=== PATIENT | male | born 1950 | race African-American/Black ===

== ENCOUNTER 2019-07-29 11:25 | Inpatient (IN) | payer MEDICARE ==
[~2019-07-29] VITALS: Ht 172.7 cm; Wt 67.5 kg
--- NOTE | 2019-07-29 11:46 | NUR ---
nURSING NOTED: ELDON ambulam[facility] from [facility] for ALtered mental status, patient is lethargic, nonverbal, has to be shaken to open and blink eyes, otherwise he is with eyes closed, patient is on Venti mask at 55% saturating at 93% with RR of 16 and heart rate at 76 in sinus rhythm. Bp is 140/92. assessed be er physcician.
[2019-07-29 11:51] VITALS: BP 140/92
--- NOTE | 2019-07-29 11:53 | Emergency Room Report ---
History of Present Illness General Chief Complaint: Altered Mental Status Source: Medical Record Present Illness HPI Disclaimer: Please note that this report is being documented using [employer] technology. This can lead to erroneous entry secondary to incorrect interpretation by the dictating instrument. HPI: 68-year-old male with a history of CVA resultant aphasia left-sided weakness, chronic kidney disease, hypertension, hyperlipidemia, diabetes, nonverbal at baseline, presents for evaluation of altered mental status. According to skilled nursing documents and EMS the patient was less arousable and less active than his baseline. His baseline is reportedly a and O x1 but is able to follow some commands which he was apparently not doing. Today found him hypoxic at 86% on room air which improved after starting on nonrebreather. His fingerstick was in the low 70s and he was given glucagon without significant improvement. EMS stated that there was pupillary asymmetry and some spasticity in the left upper extremity however it is unclear whether or not this is chronic or an acute change. The patient cannot provide any history. He is on Xarelto. PMH: Hypertension, hyperlipidemia, stroke, diabetes PSH: See medical record Allergies: None reported Social Hx: See chart Allergies: Coded Allergies: No Known Allergies (Unverified , 07/29/19) Nursing Documentation-PMH Past Medical History: No History, Except For Hx Hypertension: Yes - hypoglycemia Hx Gastrointestinal Problems: Yes - GERD, dysphagia History Of Psychiatric Problem: Yes - anxiety Hx Neurological Problems: Yes Hx Seizures: Yes Review of Systems All Other Systems: negative except mentioned in HPI Physical Exam Vital Signs Date Time Temp Pulse Resp B/P (MAP) Pulse Ox O2 Delivery O2 Flow Rate FiO2 07/29/19 11:34 97.2 84 16 144/97 (113) 90 Nasal Cannula 6.0 General: Somnolent, no spontaneous eye movement. Can follow some commands HEENT: NC/AT. EOMI. pupils are approximately 3 mm and faintly reactive bilaterally. Neck: Supple, trachea midline Cardiovascular: RRR. S1 and S2 normal. No murmur appreciated Resp: Diminished breath sounds at the right lung base with some crackles. No wheezing. Abdomen: Abdomen is soft, nondistended. Nontender Skin: Intact. No abrasions, laceration or rash over the exposed skin MSK: Mild increased in tone in the left upper extremity on passive flexion extension at the left elbow. Neuro: Somnolent, GCS 8. Procedures Critical Care Time Critical Care Time Total critical care time: Approximately 45 minutes Due to a high probability of clinically significant, life threatening deterioration, the patient required the highest level of preparedness to intervene emergently and I personally spent this critical care time directly and personally managing the patient. This critical care time included obtaining a history, examining the patient, pulse oximetry, ordering and reviewing studies , ordering treatments, evaluating response to treatment and updating management plan as needed, frequent reassessment and discussion with other providers as well as arranging for ultimate disposition. This critical to care time was performed to assess and manage the high probability of life-threatening deterioration that could result in multiorgan failure. This critical care time is separate from the separately billable procedures and treating other patients. Medical Decision Making Diagnostic Impression: Primary Impression: Altered mental status Additional Impressions: Pneumonia Acidosis Sepsis Elevated troponin ER Course 68-year-old male presents for evaluation of change in mentation. Patient would require a broad work-up given the reported hypoxia, hypoglycemia and history of CVA and use of anticoagulants. Will send for CT scan of the head without contrast as well as broad metabolic and infectious labs. IV fluids started. Chest x-ray ordered for crackles at the right lung base concerning for pneumonia. Patient will require admission Laboratory Tests Test 07/29/19 12:28 07/29/19 13:00 07/29/19 13:10 Arterial Blood pH 7.407 (7.350-7.450) Arterial Blood Partial Pressure CO2 38.1 mmHg (35.0-45.0) Arterial Blood Partial Pressure O2 72.9 mmHg (75.0-100.0) L Arterial Blood HCO3 23.4 mmol/L (22.0-26.0) Arterial Blood Oxygen Saturation 94.5 % (95-100) L Arterial Blood Base Excess -0.9 (-2-2) Yo Test Positive White Blood Count 14.5 K/UL (4.8-10.8) H Red Blood Count 5.67 M/UL (4.70-6.10) Hemoglobin 16.6 G/DL (14.2-18.0) Hematocrit 50.3 % (42.0-52.0) Mean Corpuscular Volume 89 FL (80-99) Mean Corpuscular Hemoglobin 29.3 PG (27.0-31.0) Mean Corpuscular Hemoglobin Concent 33.0 G/DL (32.0-36.0) Red Cell Distribution Width 12.2 % (11.6-14.8) Platelet Count 236 K/UL (150-450) Mean Platelet Volume 5.2 FL (6.5-10.1) L Neutrophils (%) (Auto) 75.1 % (45.0-75.0) H Lymphocytes (%) (Auto) 16.3 % (20.0-45.0) L Monocytes (%) (Auto) 7.5 % (1.0-10.0) Eosinophils (%) (Auto) 0.6 % (0.0-3.0) Basophils (%) (Auto) 0.5 % (0.0-2.0) Prothrombin Time 13.4 SEC (9.30-11.50) H Prothrombin Time INR 1.3 (0.9-1.1) H PTT 34 SEC (23-33) H Sodium Level 143 MMOL/L (136-145) Potassium Level 4.1 MMOL/L (3.5-5.1) Chloride Level 108 MMOL/L (98-107) H Carbon Dioxide Level 26 MMOL/L (21-32) Anion Gap 9 mmol/L (5-15) Blood Urea Nitrogen 18 mg/dL (7-18) Creatinine 1.3 MG/DL (0.55-1.30) Estimate Glomerular Filtration Rate > 60 mL/min (>60) Glucose Level 86 MG/DL (74-106) Lactic Acid Level 3.00 mmol/L (0.4-2.0) H Calcium Level 9.3 MG/DL (8.5-10.1) Phosphorus Level 3.8 MG/DL (2.5-4.9) Magnesium Level 1.9 MG/DL (1.8-2.4) Total Bilirubin 0.3 MG/DL (0.2-1.0) Aspartate Amino Transferase (AST) 17 U/L (15-37) Alanine Aminotransferase (ALT) 16 U/L (12-78) Alkaline Phosphatase 106 U/L (46-116) Total Creatine Kinase 234 U/L (26-308) Creatine Kinase MB 2.8 NG/ML (0.0-3.6) Creatine Kinase MB Relative Index 1.1 Troponin I 0.084 ng/mL (0.000-0.056) Pro-B-Type Natriuretic Peptide 971 pg/mL (0-125) H Total Protein 7.5 G/DL (6.4-8.2) Albumin 3.1 G/DL (3.4-5.0) L Globulin 4.4 g/dL Albumin/Globulin Ratio 0.7 (1.0-2.7) L Urine Color Pale yellow Urine Appearance Clear Urine pH 5 (4.5-8.0) Urine Specific [place] 1.015 (1.005-1.035) Urine Protein 3+ (NEGATIVE) H Urine Glucose (UA) Negative (NEGATIVE) Urine Ketones Negative (NEGATIVE) Urine Blood Negative (NEGATIVE) Urine Nitrite Negative (NEGATIVE) Urine Bilirubin Negative (NEGATIVE) Urine Urobilinogen Normal MG/DL (0.0-1.0) Urine Leukocyte Esterase Negative (NEGATIVE) Urine RBC 0 /HPF (0 - 0) Urine WBC 0 /HPF (0 - 0) Urine Squamous Epithelial Cells None /LPF (NONE/OCC) Urine Bacteria None /HPF (NONE) EKG Diagnostic Results EKG Time: 11:54 Rate: normal Rhythm: NSR ST Segments: no acute changes Other Impression Sinus rhythm, left axis deviation, normal cardiac intervals, no ST segment changes. Rhythm Strip Diag. Results Rhythm Strip Time: 11:54 EP Interpretation: yes Rate: 70s Rhythm: NSR, no PVC's, no ectopy Chest X-Ray Diagnostic Results Chest X-Ray Diagnostic Results : # of Views/Limited/Complete: 1 View Indication: Shortness of Breath Interpretation: no effusion, other - The left costophrenic angle is obscured with possible effusion or infiltrate suggestive of pneumonia Impression: Other - Possible pneumonia and effusion and left lower lobe Electronically Signed by: Electronically signed by Dr. Marco Mera Reevaluation Time: 14:26 Last Vital Signs Date Time Temp Pulse Resp B/P (MAP) Pulse Ox O2 Delivery O2 Flow Rate FiO2 07/29/19 11:34 97.2 84 16 144/97 (113) 90 Nasal Cannula 6.0 Reevaluation Impression Labs show a white count of 14.5 and possible infiltrate in the left lower lobe suggestive of pneumonia. Troponin came back slightly elevated but there are no ischemic changes on his EKG. We will start sepsis level fluids for an elevated lactate. Blood cultures are sent. Patient will be admitted to telemetry for further management. His PMD will be the admitting doctor in the hospital and he was updated by telephone. Disposition: ADMITTED INPATIENT Condition: Serious Marco Mera MD Jul 29, 2019 11:53
--- NOTE | 2019-07-29 12:58 | Diagnostic Imaging Report ---
EXAM: CT Head Without Intravenous Contrast CLINICAL HISTORY: AMS TECHNIQUE: Axial computed tomography images of the head brain without intravenous contrast. CTDI is 60.0 mGy and DLP is 1334.1 mGy-cm. One or more of the following dose reduction techniques were used: automated exposure control, adjustment of the mA and or kV according to patient size, use of iterative reconstruction technique. COMPARISON: None FINDINGS: Brain: No acute infarct or hemorrhage identified. No extra-axial fluid collection. No mass effect or midline shift. Scattered areas of hypoattenuation in the supratentorial white matter likely represent chronic small vessel ischemic changes. Remote infarct in the right basal ganglia. Encephalomalacia in the right temporal lobe, parietal lobe, and frontal lobe. Remote infarcts in the cerebellar hemispheres. Ventricles and sulci: Prominence of the ventricles and sulci is likely secondary to cerebral volume loss. Skull: Normal. No bony lesion or fracture. Subcutaneous tissues: Probably 8 mm sebaceous cyst in the right frontal region. Sinuses: Small polyp versus mucous retention cyst in a posterior left ethmoid air cell. Orbits: Bilateral lens implants. Other: Atherosclerotic calcifications in the intracranial vasculature. IMPRESSION: 1. No acute intracranial abnormality. 2. Chronic small vessel ischemic changes and cerebral volume loss. Scattered remote infarcts as described above.
[2019-07-29 13:50] LABS: ANION GAP 9 mmol/L (5-15); BLOOD UREA NITROGEN 18 mg/dL (7-18); CALCIUM 9.3 MG/DL (8.5-10.1); CARBON DIOXIDE 26 MMOL/L (21-32); CHLORIDE 108 MMOL/L (98-107); CREATININE 1.3 MG/DL (0.55-1.30); POTASSIUM 4.1 MMOL/L (3.5-5.1); SODIUM 143 MMOL/L (136-145)
[2019-07-29 13:56] LABS: APPEARANCE,URINE CLEAR; BILIRUBIN, URINE NEGATIVE (NEGATIVE); COLOR,URINE PALE YELLOW; GLUCOSE, URINE (UA) NEGATIVE (NEGATIVE); KETONES,URINE NEGATIVE (NEGATIVE); LEUKOCYTE ESTERASE ,URINE NEGATIVE (NEGATIVE); NITRITE,URINE NEGATIVE (NEGATIVE); PH,URINE 5 (4.5-8.0); PROTEIN,URINE 3+ (NEGATIVE); UROBILINOGEN,URINE NORMAL MG/DL (0.0-1.0)
[2019-07-29 14:01] LABS: BASOPHILS % (AUTO) 0.5 % (0.0-2.0); EOSINOPHILS % (AUTO) 0.6 % (0.0-3.0); HEMATOCRIT 50.3 % (42.0-52.0); HEMOGLOBIN 16.6 G/DL (14.2-18.0); LYMPHOCYTES % (AUTO) 16.3 % (20.0-45.0); MEAN CORPUSCULAR VOLUME 89 FL (80-99); MONOCYTES % (AUTO) 7.5 % (1.0-10.0); NEUTROPHILS % (AUTO) 75.1 % (45.0-75.0); PLATELET COUNT 236 K/UL (150-450); RED BLOOD COUNT 5.67 M/UL (4.70-6.10); RED CELL DISTRIBUTION WIDTH 12.2 % (11.6-14.8); WHITE BLOOD COUNT 14.5 K/UL (4.8-10.8)
[2019-07-29 14:03] LABS: ALANINE AMINOTRANSFERASE 16 U/L (12-78); ALBUMIN 3.1 G/DL (3.4-5.0); ALBUMIN/GLOBULIN RATIO 0.7 (1.0-2.7); ALKALINE PHOSPHATASE 106 U/L (46-116); ASPARTATE AMINO TRANSFERASE 17 U/L (15-37); BILIRUBIN,TOTAL 0.3 MG/DL (0.2-1.0); CKMB 2.8 NG/ML (0.0-3.6); CREATINE KINASE 234 U/L (26-308); PHOSPHORUS 3.8 MG/DL (2.5-4.9)
[2019-07-29 14:07] LABS: INR 1.3 (0.9-1.1)
[2019-07-29] MEDS ORDERED: cefTRIAXone 1 GM in NS 55 ML IV SCH (14:30)
[2019-07-29] MEDS ORDERED: Naloxone 0.4mg/ml Inj IVP ONE (14:30)
[2019-07-29] MEDS ORDERED: Azithromycin 500 MG in NS 275 ML IV SCH (14:30)
[2019-07-29] MEDS ORDERED: DOCUSATE SODIU100 MG ORAL (17:12)
[2019-07-29] MEDS ORDERED: ATORVASTATIN CA20 MG ORAL (17:12)
[2019-07-29] MEDS ORDERED: DUONEB 0.5-3(2.53 ML HHN (17:12)
[2019-07-29] MEDS ORDERED: INSULIN LI100 UNIT/1 SQ (17:12)
[2019-07-29] MEDS ORDERED: LANTUS SOL100 UNIT/1 SUBQ (17:12)
[2019-07-29] MEDS ORDERED: LISINOPRIL40 MG ORAL (17:12)
[2019-07-29] MEDS ORDERED: FAMOTIDINE20 MG ORAL (17:12)
[2019-07-29] MEDS ORDERED: GLIPIZIDE10 MG PO (17:12)
[2019-07-29] MEDS ORDERED: KLONOPIN1 MG ORAL (17:12)
[2019-07-29] MEDS ORDERED: GLUCAGON EMERGEN1 MG IJ (17:12)
[2019-07-29] MEDS ORDERED: GABAPENTIN400 MG ORAL (17:12)
[2019-07-29] MEDS ORDERED: GLIPIZIDE5 MG ORAL (17:12)
[2019-07-29] MEDS ORDERED: DULCOLAX10 MG RC (17:12)
[2019-07-29] MEDS ORDERED: HYDRALAZINE HCL25 M1 ORAL (17:12)
[2019-07-29] MEDS ORDERED: ASPIR 8181 MG ORAL (17:12)
[2019-07-29] MEDS ORDERED: MULTIVITAMINS1 EAC2 ORAL (17:15)
[2019-07-29] MEDS ORDERED: QUETIAPINE FUMA50 MG ORAL ×2 (17:15→17:17)
[2019-07-29] MEDS ORDERED: ZOFRAN ODT8 MG ORAL (17:15)
[2019-07-29] MEDS ORDERED: MILK OF MA400 MG/51 ORAL (17:15)
[2019-07-29] MEDS ORDERED: METFORMIN HCL1000 M1 ORAL (17:15)
[2019-07-29] MEDS ORDERED: XARELTO10 MG ORAL (17:17)
[2019-07-29] MEDS ORDERED: ACETAMINOPHEN325 M1 ORAL (17:17)
[2019-07-29] MEDS ORDERED: VALPROIC A250 MG/5 M PO (17:17)
[2019-07-29] MEDS ORDERED: TRAMADOL HCL50 MG ORAL (17:17)
[2019-07-29 18:10] VITALS: BP 157/90
--- NOTE | 2019-07-29 18:12 | NUR ---
TRANSFER TO FLOOR: REPORT GIVEN TO ROBIN [facility]. PATIENT PLACED ON ROOM 209-1 AND REMAINS ON VENTURI MASK AT 55%. PATIENT IS ABLE TO M,OVE UPPER EXTREMETIES AT 3/5 AND LEGS AT 1/5. PATIENT ABLE TO OPEN EYES BUT REMAINS LETHARGIC. NO BELONGINGS WITH PATIENT UPON TRANSFER.
--- NOTE | 2019-07-29 18:45 | NUR ---
NURSE NOTES: Paged Dr. Fernando who is covering Dr. Sandra Lopez who is covering Dr. Mansfield per Dr. Mansfield voicemail. About troponin 0.254. Awaiting call back.
--- NOTE | 2019-07-29 19:00 | History and Physical Report ---
DATE OF ADMISSION: 07/29/2019 The patient is seen in the emergency room. CHIEF COMPLAINT: The patient sent from shelter for altered mental status. HISTORY OF PRESENT ILLNESS: This is a patient 68 year old man from [facility] with history of hypertension, diabetes, seizure disorder, who was noted by the nursing staff to have altered mental status, arousable and will go back to sleep. The patient was hypoglycemic, glucagon was given, was brought in by paramedics. The patient was found to have some infiltrate on chest x-ray and elevated white count, hypoxic on room air. Narcan was given with minimal effect. The patient had a previous admission back in June 2019 at [facility] for possibly overdose with benzodiazepine, opioid unintentionally. There was no documented seizure at that time. PAST MEDICAL HISTORY: As above. PAST SURGICAL HISTORY: Reviewed. MEDICATIONS AT HOME: Please refer to the medication reconciliation. I have reviewed at length. REVIEW OF SYSTEMS: Unable to obtain because of patient's mental status. PHYSICAL EXAMINATION: VITAL SIGNS: Stable, afebrile. GENERAL: The patient is lying in bed, arousable with painful stimuli and verbal commands briefly. HEENT: Eyes anicteric. NECK: Supple. CARDIAC: S1, S2 normal. LUNGS: Bilateral rhonchi. ABDOMEN: Soft, nontender, nondistended. No guarding. No rebound. EXTREMITIES: No significant edema or cyanosis. NEUROLOGIC: The patient has altered mental status and lethargic. LABORATORY AND DIAGNOSTIC DATA: Laboratories reviewed, noted with elevated white count otherwise electrolytes are okay. X-ray infiltrate at the bases, possible pneumonia. UA, no evidence of urinary tract infection. IMPRESSION: 1. Acute encephalopathy, rule out seizure, rule out hypoglycemia, and rule out other infectious process, possibly pneumonia facility acquired. 2. History of seizure disorder. 3. Diabetes type type 2. 4. Hypertension. 5. Muscle weakness. 6. Gait impairment. 7. Hypoxemia. PLAN: 1. Admit to telemetry. 2. Oxygen to keep saturation above 92%. 3. Pulmonary and Infectious Diseases consult. 4. IV antibiotics with Zosyn and vancomycin. 5. Follow up cultures. 6. History of sliding scale. 7. NPO until patient become more alert. 8. Aspiration, seizure, and fall precaution. 9. Check electrolytes and replete as indicated. 10. Recheck CBC, BMP, magnesium, phosphorus, TSH, hemoglobin A1c. 11. Check procalcitonin. 12. Check ammonia level. 13. Pulmonary nebulizer every 4 hours as needed. 14. Further recommendation to follow pending the patient's response to above measures. 15. Dr. Gavin Lopez will be covering me going forward. I will be back to see the patient on Tuesday, August 01, 2019. CODE STATUS: Full code. TIME SPENT: Time spent in evaluation and coordination of care 75 minute. Salvador D Bailee Mansfield DR: Choco JOB#: [id number] CC: DANIELE
--- NOTE | 2019-07-29 19:02 | NUR ---
NURSE NOTES: Received report from Abebe in ED. patient arrived lethargic and nonverbal on 55% Venti mask. VSS. NSR on telemetry with bolus and azithromycin running to peripheral IVs. Bed in lowest , locked position.
--- NOTE | 2019-07-29 19:08 | NUR ---
NURSE NOTES: Spoke with Dr Mansfield who gave telephone orders. Addendum: 07/29/19 at 2001 by Baldomero Eckert RN per padilla Mg glipizide, lantus, metformin, gabapentin due to AMS. Addendum: 07/29/19 at 2028 by Baldomero Eckert RN When receiving the orders by telephone, this RN asked Dr Mansfield if he was continuing the oral 20mg xarelto or any non-oral anticoag should be ordered given the patient's lethargy and NPO ordered diet. DR Mansfield instructed to continue with Xarelto without change.
[2019-07-29] MEDS ORDERED: traMADol 50mg tab ORAL PRN (19:45)
[2019-07-29] MEDS ORDERED: Albuterol/Ipratropium 3ml neb HHN PRN (19:45)
--- NOTE | 2019-07-29 19:50 | NUR ---
NURSE NOTES: Received pt from ROBIN Causey. Pt awake but nonverbal. Bed in lowest position. Call light within reach. Will continue to monitor.
[2019-07-29 20:00] VITALS: BP 159/81
--- NOTE | 2019-07-29 20:02 | NUR ---
NURSE NOTES: Critical Troponin 0.245 (up from .084). Called Dr Mansfield's phone at 645pm--message stated to call Dr Stallworth. Dr Stallworth message stated to leave message for diabetes solutions specialist doctor, so left message for Dr Lawson. Recalled and left another message for Lulu at 715pm. Dr Lawson called back at 730pm to say he would check with Dr Stallworth and Dr Mansfield before placing new orders. Endorsed to night RNKeiry who stated she would call per protocol to follow up.
[2019-07-29] MEDS: NovoLOG Insulin Flexpen SUBQ SCH (21:00)
[2019-07-29] MEDS: Atorvastatin 20mg tab ORAL SCH (21:00)
[2019-07-29] MEDS: Valproate Sodium INJ 500 MG in D5W 55 ML IVPB SCH (21:00)
[2019-07-29] MEDS: Piperacillin/Tazobactam 3.375 GM in NS 110 ML IVPB SCH (21:53)
[2019-07-30] VITALS: BP 155/89
[2019-07-30] MEDS ORDERED: Vancomycin 1gm in D5W 275ml IVPB SCH (02:00)
[2019-07-30 04:00] VITALS: BP 149/72
[2019-07-30] MEDS: NovoLOG Insulin Flexpen SUBQ SCH ×4 (05:25→21:00)
[2019-07-30] MEDS: Piperacillin/Tazobactam 3.375 GM in NS 110 ML IVPB SCH ×3 (05:25→22:54)
[2019-07-30 07:16] LABS: BASOPHILS % (AUTO) 0.5 % (0.0-2.0); EOSINOPHILS % (AUTO) 0.9 % (0.0-3.0); HEMATOCRIT 40.1 % (42.0-52.0); HEMOGLOBIN 13.5 G/DL (14.2-18.0); LYMPHOCYTES % (AUTO) 18.5 % (20.0-45.0); MEAN CORPUSCULAR VOLUME 88 FL (80-99); MONOCYTES % (AUTO) 7.9 % (1.0-10.0); NEUTROPHILS % (AUTO) 72.2 % (45.0-75.0); PLATELET COUNT 203 K/UL (150-450); RED BLOOD COUNT 4.54 M/UL (4.70-6.10); RED CELL DISTRIBUTION WIDTH 12.4 % (11.6-14.8); WHITE BLOOD COUNT 10.5 K/UL (4.8-10.8)
[2019-07-30 07:22] LABS: AMMONIA 20 umol/L (11-32)
[2019-07-30 07:35] LABS: ALANINE AMINOTRANSFERASE 13 U/L (12-78); ALBUMIN 2.5 G/DL (3.4-5.0); ALBUMIN/GLOBULIN RATIO 0.7 (1.0-2.7); ALKALINE PHOSPHATASE 84 U/L (46-116); ANION GAP 7 mmol/L (5-15); ASPARTATE AMINO TRANSFERASE 16 U/L (15-37); BILIRUBIN,TOTAL 0.5 MG/DL (0.2-1.0); BLOOD UREA NITROGEN 13 mg/dL (7-18); CALCIUM 8.4 MG/DL (8.5-10.1); CARBON DIOXIDE 28 MMOL/L (21-32); CHLORIDE 109 MMOL/L (98-107); CHOLESTEROL 74 MG/DL (< 200); CREATININE 1.2 MG/DL (0.55-1.30); HDL CHOLESTEROL 31 MG/DL (40-60); POTASSIUM 3.9 MMOL/L (3.5-5.1); SODIUM 143 MMOL/L (136-145); TRIGLYCERIDES 82 MG/DL (30-150)
--- NOTE | 2019-07-30 07:54 | NUR ---
HAND-OFF: Report given to ROBIN Causey. Pt stable.
[2019-07-30 08:00] VITALS: BP 158/85
--- NOTE | 2019-07-30 08:11 | NUR ---
NURSE NOTES:Received report from ROBIN Ricci. Patient found with venti mask 55% and no sign of cardiac or respiratory distress. opened eyes with shaking but remained nonverbal. NPO with Zosyn running currently. Bed in lowest, locked position and call fernandez in reach.
--- NOTE | 2019-07-30 08:12 | NUR ---
NURSE NOTES: Troponin 0.138 down from 0.245 in previous sample.
--- NOTE | 2019-07-30 08:24 | NUR ---
NURSE NOTES: Spoke with Mónica Wallace at 8:25 am who stated "I was his roommate for many years. he is from [place]--he doesn't have any family. My daughter is Jane and she is the one who arranged to put him where he was at [facility]. you could call her." Called Jane Hartman [phone] who identified herself as the decisionmaker for Jan. Explained procedure EGD with second RN witness and decisionmaker stated "I understand --my Mom had the same test, so I am familiar. You're going to put a camera down his throat to see if there's any problems. He doesn't talk and he doesn't eat, so we need to do something. We should do this test." Moni, RN then spoke to Jane on phone to witness consent and double check understanding of procedure. This RN stated that Dr would explain more about test with Jane. Addendum: 07/30/19 at 0840 by Baldomero Eckert RN ABOVE NOTATIONS ENTERED FOR WRONG PATIENT> ENTERED IN ERROR. Above information entered for correct patient now.
--- NOTE | 2019-07-30 08:40 | NUR ---
NURSE NOTES: Entered in error: Previous note by this RN regarding consent for EGD
[2019-07-30] MEDS: Docusate 250mg cap ORAL SCH (09:00)
--- NOTE | 2019-07-30 09:08 | NUR ---
NURSE NOTES: Emergency restraints placed when patient found twisted and legs hanging off of the bed. Patient pulled out IV and removed venti mask multiple times. Spoke with Dr Gabriel who authorized ordering soft wrist restraints bilaterally. Dr Gabriel stated he would contact Dr Mansfield. Also, Dr Gabriel authorized attempting oral meds as tolerated by patient despite NPO status. Dr gabriel stated he will speak to Dr Mansfield regarding neurology consult. Addendum: 07/30/19 at 3446 by Baldomero Eckert RN Called [facility] listed on face sheet "Gilda Bautista for [place], ([phone])" but person answering phone stated : "you got a wrong number . I don't know anybody named that"
--- NOTE | 2019-07-30 09:32 | Infectious Diseases Prog Note ---
Assessment/Plan Assessment/Plan ID consult was dictated Subjective Allergies: Coded Allergies: No Known Allergies (Unverified , 07/29/19) Objective Vital Signs Last 24 Hour Vital Signs Date Time Temp Pulse Resp B/P (MAP) Pulse Ox O2 Delivery O2 Flow Rate FiO2 07/30/19 04:00 57 07/30/19 04:00 97.6 56 18 149/72 (97) 98 07/30/19 04:00 12.0 07/30/19 00:17 Venturi Mask 07/30/19 00:03 Venturi Mask 07/30/19 00:00 69 07/30/19 00:00 12.0 07/30/19 00:00 97.8 66 18 155/89 (111) 96 07/29/19 21:00 Venturi Mask 07/29/19 20:00 97.5 60 18 159/81 (107) 99 07/29/19 20:00 73 07/29/19 18:10 97.1 74 14 157/90 (112) 99 07/29/19 11:53 83 20 Venturi Mask 14.0 55 07/29/19 11:51 97.1 76 19 140/92 93 Venturi Mask 14.0 55 07/29/19 11:34 97.2 84 16 144/97 (113) 90 Nasal Cannula 6.0 Height (Feet): 5 Height (Inches): 8.00 Weight (Pounds): 150 Laboratory Tests Test 07/29/19 12:28 07/29/19 13:00 07/29/19 13:10 07/29/19 17:15 Arterial Blood pH 7.407 (7.350-7.450) Arterial Blood Partial Pressure CO2 38.1 mmHg (35.0-45.0) Arterial Blood Partial Pressure O2 72.9 mmHg (75.0-100.0) L Arterial Blood HCO3 23.4 mmol/L (22.0-26.0) Arterial Blood Oxygen Saturation 94.5 % (95-100) L Arterial Blood Base Excess -0.9 (-2-2) Yo Test Positive White Blood Count 14.5 K/UL (4.8-10.8) H Red Blood Count 5.67 M/UL (4.70-6.10) Hemoglobin 16.6 G/DL (14.2-18.0) Hematocrit 50.3 % (42.0-52.0) Mean Corpuscular Volume 89 FL (80-99) Mean Corpuscular Hemoglobin 29.3 PG (27.0-31.0) Mean Corpuscular Hemoglobin Concent 33.0 G/DL (32.0-36.0) Red Cell Distribution Width 12.2 % (11.6-14.8) Platelet Count 236 K/UL (150-450) Mean Platelet Volume 5.2 FL (6.5-10.1) L Neutrophils (%) (Auto) 75.1 % (45.0-75.0) H Lymphocytes (%) (Auto) 16.3 % (20.0-45.0) L Monocytes (%) (Auto) 7.5 % (1.0-10.0) Eosinophils (%) (Auto) 0.6 % (0.0-3.0) Basophils (%) (Auto) 0.5 % (0.0-2.0) Prothrombin Time 13.4 SEC (9.30-11.50) H Prothromb Time International Ratio 1.3 (0.9-1.1) H Activated Partial Thromboplast Time 34 SEC (23-33) H Sodium Level 143 MMOL/L (136-145) Potassium Level 4.1 MMOL/L (3.5-5.1) Chloride Level 108 MMOL/L (98-107) H Carbon Dioxide Level 26 MMOL/L (21-32) Anion Gap 9 mmol/L (5-15) Blood Urea Nitrogen 18 mg/dL (7-18) Creatinine 1.3 MG/DL (0.55-1.30) Estimat Glomerular Filtration Rate > 60 mL/min (>60) Glucose Level 86 MG/DL (74-106) Lactic Acid Level 3.00 mmol/L (0.4-2.0) H 2.00 mmol/L (0.66-2.22) Calcium Level 9.3 MG/DL (8.5-10.1) Phosphorus Level 3.8 MG/DL (2.5-4.9) Magnesium Level 1.9 MG/DL (1.8-2.4) Total Bilirubin 0.3 MG/DL (0.2-1.0) Aspartate Amino Transf (AST/SGOT) 17 U/L (15-37) Alanine Aminotransferase (ALT/SGPT) 16 U/L (12-78) Alkaline Phosphatase 106 U/L (46-116) Total Creatine Kinase 234 U/L (26-308) Creatine Kinase MB 2.8 NG/ML (0.0-3.6) Creatine Kinase MB Relative Index 1.1 Troponin I 0.084 ng/mL (0.000-0.056) 0.245 ng/mL (0.000-0.056) Pro-B-Type Natriuretic Peptide 971 pg/mL (0-125) H Total Protein 7.5 G/DL (6.4-8.2) Albumin 3.1 G/DL (3.4-5.0) L Globulin 4.4 g/dL Albumin/Globulin Ratio 0.7 (1.0-2.7) L Urine Color Pale yellow Urine Appearance Clear Urine pH 5 (4.5-8.0) Urine Specific [place] 1.015 (1.005-1.035) Urine Protein 3+ (NEGATIVE) H Urine Glucose (UA) Negative (NEGATIVE) Urine Ketones Negative (NEGATIVE) Urine Blood Negative (NEGATIVE) Urine Nitrite Negative (NEGATIVE) Urine Bilirubin Negative (NEGATIVE) Urine Urobilinogen Normal MG/DL (0.0-1.0) Urine Leukocyte Esterase Negative (NEGATIVE) Urine RBC 0 /HPF (0 - 0) Urine WBC 0 /HPF (0 - 0) Urine Squamous Epithelial Cells None /LPF (NONE/OCC) Urine Bacteria None /HPF (NONE) Test 07/30/19 06:55 White Blood Count 10.5 K/UL (4.8-10.8) Red Blood Count 4.54 M/UL (4.70-6.10) L Hemoglobin 13.5 G/DL (14.2-18.0) L Hematocrit 40.1 % (42.0-52.0) L Mean Corpuscular Volume 88 FL (80-99) Mean Corpuscular Hemoglobin 29.7 PG (27.0-31.0) Mean Corpuscular Hemoglobin Concent 33.6 G/DL (32.0-36.0) Red Cell Distribution Width 12.4 % (11.6-14.8) Platelet Count 203 K/UL (150-450) Mean Platelet Volume 5.1 FL (6.5-10.1) L Neutrophils (%) (Auto) 72.2 % (45.0-75.0) Lymphocytes (%) (Auto) 18.5 % (20.0-45.0) L Monocytes (%) (Auto) 7.9 % (1.0-10.0) Eosinophils (%) (Auto) 0.9 % (0.0-3.0) Basophils (%) (Auto) 0.5 % (0.0-2.0) Sodium Level 143 MMOL/L (136-145) Potassium Level 3.9 MMOL/L (3.5-5.1) Chloride Level 109 MMOL/L (98-107) H Carbon Dioxide Level 28 MMOL/L (21-32) Anion Gap 7 mmol/L (5-15) Blood Urea Nitrogen 13 mg/dL (7-18) Creatinine 1.2 MG/DL (0.55-1.30) Estimat Glomerular Filtration Rate > 60 mL/min (>60) Glucose Level 87 MG/DL (74-106) Hemoglobin A1c 6.2 % (4.3-6.0) H Calcium Level 8.4 MG/DL (8.5-10.1) L Phosphorus Level 3.0 MG/DL (2.5-4.9) Magnesium Level 1.5 MG/DL (1.8-2.4) L Total Bilirubin 0.5 MG/DL (0.2-1.0) Aspartate Amino Transf (AST/SGOT) 16 U/L (15-37) Alanine Aminotransferase (ALT/SGPT) 13 U/L (12-78) Alkaline Phosphatase 84 U/L (46-116) Ammonia 20 umol/L (11-32) Troponin I 0.138 ng/mL (0.000-0.056) Total Protein 6.1 G/DL (6.4-8.2) L Albumin 2.5 G/DL (3.4-5.0) L Globulin 3.6 g/dL Albumin/Globulin Ratio 0.7 (1.0-2.7) L Triglycerides Level 82 MG/DL (30-150) Cholesterol Level 74 MG/DL (< 200) LDL Cholesterol 37 mg/dL (<100) HDL Cholesterol 31 MG/DL (40-60) L Cholesterol/HDL Ratio 2.4 (3.3-4.4) L Thyroid Stimulating Hormone (TSH) 1.026 uiU/mL (0.358-3.740) Current Medications Medications (Trade) Dose Ordered Sig/Rhonda Route PRN Reason Start Time Stop Time Status Last Admin Dose Admin Acetaminophen (Tylenol) 650 mg Q4H PRN ORAL Mild Pain/Temp > 100.5 07/29/19 19:45 08/28/19 19:44 Albuterol/ Ipratropium (Albuterol/ Ipratropium) 3 ml Q8H PRN HHN Shortness of Breath 07/29/19 19:45 08/03/19 19:44 Aspirin (ASA) 81 mg DAILY NG 07/30/19 09:00 08/29/19 08:59 Atorvastatin Calcium (Lipitor) 20 mg BEDTIME ORAL 07/29/19 21:00 08/28/19 20:59 Clonazepam (KlonoPIN) 1 mg Q12H PRN ORAL For Anxiety 07/29/19 19:45 08/05/19 19:44 Dextrose (Dextrose 50%) 25 ml Q30M PRN IV Hypoglycemia 07/29/19 18:45 08/28/19 18:44 07/29/19 22:19 Dextrose (Dextrose 50%) 50 ml Q30M PRN IV Hypoglycemia 07/29/19 18:45 08/28/19 18:44 Docusate Sodium (Colace) 250 mg DAILY ORAL 07/30/19 09:00 08/29/19 08:59 Famotidine (Pepcid) 20 mg DAILY ORAL 07/30/19 09:00 08/29/19 08:59 Hydralazine HCl (Apresoline) 25 mg Q6H PRN ORAL For High Blood Pressure 07/29/19 19:45 08/28/19 19:44 Insulin Aspart (NovoLOG) BEFORE MEALS AND HS SUBQ 07/29/19 21:00 08/28/19 20:59 Lisinopril (Prinivil) 40 mg DAILY ORAL 07/30/19 09:00 08/29/19 08:59 Ondansetron HCl (Zofran) 4 mg Q6H PRN IVP Nausea & Vomiting 07/29/19 19:45 08/28/19 19:44 Piperacillin Sod/ Tazobactam Sod 3.375 gm/Sodium Chloride 110 ml @ 27.5 mls/hr Q8HR IVPB 07/29/19 22:00 08/05/19 21:59 07/30/19 05:25 Quetiapine Fumarate (SEROquel) 50 mg DAILYPRN PRN ORAL HALLUCINATIONS 07/29/19 19:45 08/28/19 19:44 Rivaroxaban (Xarelto) 20 mg DAILY ORAL 07/30/19 09:00 08/29/19 08:59 Sodium Chloride 1,000 ml @ 75 mls/hr [id number] IV 07/29/19 19:15 08/28/19 19:14 07/29/19 19:15 Tramadol HCl (Ultram) 50 mg Q6H PRN ORAL severe pain 07/29/19 19:45 08/05/19 19:44 Valproate Sodium 500 mg/Dextrose 60 ml @ 60 mls/hr Q12HR IVPB 07/29/19 21:00 08/28/19 20:59 07/29/19 21:00 Vancomycin HCl (Vanco rx to dose) 1 ea DAILY PRN MISC Per rx protocol 07/29/19 20:00 08/28/19 19:59 Vancomycin HCl 1 gm/Dextrose 275 ml @ 183.708 mls/hr Q24H IVPB 07/30/19 02:00 08/04/19 01:59 07/30/19 02:00 Hernán Buitrago MD Jul 30, 2019 09:32
--- NOTE | 2019-07-30 09:34 | Diagnostic Imaging Report ---
Indication: Shortness of breath Technique: One view of the chest Comparison: none Findings: The heart is enlarged. The lungs and pleural spaces are clear. The bones are unremarkable. The aorta is tortuous and somewhat ectatic Impression: Cardiomegaly No acute process
[2019-07-30] MEDS: Lisinopril 20mg tab ORAL SCH (10:16)
[2019-07-30] MEDS: Aspirin Baby 81mg NG SCH (10:16)
[2019-07-30] MEDS: Xarelto 10mg tab ORAL SCH (10:32)
[2019-07-30] MEDS: Valproate Sodium INJ 500 MG in D5W 55 ML IVPB SCH ×2 (10:34→21:21)
--- NOTE | 2019-07-30 11:05 | NUR ---
NURSE NOTES: 11am--Spoke with Dr Lopez to authorze swallow eval (yes, authorized) and ask about neuro consult--Dr Lopez stated he placed the consult for neuro. Also, mentioned that due to patient increased activity and alertness and 100% on Venti mask, that RT could assess for potential NC instead of Venti, which authorized. Dr Lopez stated to coninue with orders and he is rounding soon.
--- NOTE | 2019-07-30 11:17 | NUR ---
CASE MANAGEMENT: INITIAL REVIEW 68 [facility]O M [facility]: AMS PMHx: CVA. LEFT SIDED WEAKNESS. CKD. HTN. HLD. DM. SI:PNA. ELEVATED TROPONIN. T 97.2 HR 84 RR 16 B/P 144/97 SATS 90% ON 6L/NC WBC 14.5 CL 108 TROPONIN 0.084 BNP 971 ABGs PO2 72.9 O2 SAT 94.5 IS: NS BOLUS X2 AZITHROMYCIN IV X1 CEFTRIAXONE IV X1 NALOXONE IV X1 PATIENT ADMITTED TO TELE 07/29/2019 @ 1430 DCP: PATIENT TO BE DISCHARGED TO SNF ONCE MEDICALLY CLEARED. PLAN OF CARE: PULMO AND ID CONSULT SZ PRECAUTIONS ASPIRATION PRECAUTIONS ST EVAL Addendum: 07/30/19 at 1530 by Chiqui Moreno CM INTERQUAL
--- NOTE | 2019-07-30 11:34 | NUR ---
NURSE NOTES:11:33am O2 sat 100% on 2L NC. RT weaned him off venti mask in past hour--see their note.
[2019-07-30 12:00] VITALS: BP 151/87
--- NOTE | 2019-07-30 12:32 | Consultation ---
Consult Note Assessment/Plan DICT # [id number] Gavin Lopez MD Jul 30, 2019 12:32
[2019-07-30 16:00] VITALS: BP 109/69
--- NOTE | 2019-07-30 16:15 | Consultation ---
DATE OF CONSULTATION: 07/30/2019 INFECTIOUS DISEASE CONSULTATION CONSULTING PHYSICIAN: Hernán Buitrago M.D. PRIMARY ATTENDING: Salvador Mansfield M.D. REASON FOR CONSULT: Pneumonia. HISTORY OF PRESENT ILLNESS: This is a 68-year-old male who is a [facility] resident admitted yesterday because of lethargy. The patient was found to be hypoxemic with decrease in O2 saturation at 86%. Had leukocytosis of 14.5, lactic acidosis, elevated troponin, and hypoxemia. The patient was unresponsive until the morning. When he wakes up, he becomes agitated, chronic, was put on mechanical restraints. He is awake, alert. PAST MEDICAL HISTORY: Has CVA with left-sided weakness, chronic kidney disease, hyperlipidemia, diabetes mellitus, dysphagia, seizure disorder. ALLERGIES: No known drug allergies. MEDICATIONS: Aspirin, Colace, famotidine, lisinopril, Xarelto, vancomycin, Zosyn, insulin, valproic acid, clonazepam, hydralazine, albuterol, ipratropium, Zofran, Seroquel, tramadol, Tylenol, sodium chloride. SOCIAL HISTORY: [facility] resident. A . No other history obtainable. REVIEW OF SYSTEMS: Answering simple questions yes and no. Denies fever, coughing. PHYSICAL EXAMINATION: VITAL SIGNS: Temperature 97.6, pulse 56, blood pressure 149/72. GENERAL APPEARANCE: No acute distress. Well developed. HEAD AND NECK: Getting oxygen by Venturi mask. HEART: Slightly bradycardic. LUNGS: Clear with decreased sound in the left base. ABDOMEN: Soft, nontender. EXTREMITIES: no edema NEUROLOGIC: There is weakness in the left side of the body. LABORATORY AND DIAGNOSTIC DATA: ABG - pCO2 38.1, pO2 72.9. Sodium 143, potassium 3.9, chloride 109, bicarbonate 28, BUN 13, creatinine 1.2. Lactic acid at the time of admission was 3 that was subsequently normalized. Troponin 0.245. Albumin is 2.5. WBC today is 10.5, hemoglobin 13.5, hematocrit 40.1, platelets 203. CT scan of the head showed no acute intracranial activity, scattered old infarcts, chronic small vessel ischemic changes, and cerebral volume loss. Chest x-ray, official report is not released yet, but seems to have opacity in the left lower lobe. IMPRESSION: 1. Pneumonia. 2. Hypoxemic respiratory failure. 3. Altered mental status. 4. Lactic acidosis. 5. Elevated troponin. 6. History of CVA and left-sided weakness. RECOMMENDATION: We will continue with Zosyn. We will follow up the culture. We will discontinue IV vancomycin. At the end of my exam, I thank Dr. Mansfield, for involving me in the care of this patient. Hernán Buitrago M.D. DR: DANIEL JOB#: [id number] CC: DANIELE
--- NOTE | 2019-07-30 17:30 | Consultation ---
DATE OF CONSULTATION: 07/30/2019 PULMONARY AND CRITICAL CARE CONSULTATION CONSULTING PHYSICIAN: Gavin Lopez M.D. REQUESTING PHYSICIAN: Please note this consultation is at the request of Dr. Mansfield. I will be seeing the patient in Pulmonary and Critical Care consultation and at his request I will be following as primary care for the next two days as well. REASON FOR CONSULTATION: Pneumonia. HISTORY OF PRESENT ILLNESS: The patient is a very unfortunate 68-year-old gentleman, half-way resident with a history of hypertension, diabetes, seizure disorder, recently admitted to [facility] with a possible benzodiazepine overdose, who was noted to be altered at the facility as well as hypoglycemic. He was given glucagon and was sent to the ER. He had leukocytosis and evidence of respiratory infection. His white count was 14.5 on admission. ABG was 7.4/38/72/23/94. The remainder of his laboratory workup was significant for troponin bump. Head CT failed to show any acute findings and chest x-ray as I stated initially was concerning for an infiltrative process, but on final read, there was no infiltrate. On my review, there was no infiltrates either. The patient was admitted to [facility] on 06/26/2019 to 06/29/2019 with altered mental status as well. He was seen by Dr. Torsten Brito who felt that it was toxic metabolic and not related to his underlying seizure disorder. No history is obtainable from the patient as he is confused. PAST MEDICAL HISTORY: 1. Seizure disorder. 2. Diabetes. 3. History of prior CVA. 4. Hypertension. 5. Substance abuse. 6. PFO. 7. Hyperlipidemia. 8. History of IVC filter. 9. 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 ALLERGIES: No known drug allergies. MEDICATIONS: Prior to admission medications noted. Current medications noted. SOCIAL HISTORY: alf resident. No further history obtainable. FAMILY HISTORY: Unknown. REVIEW OF SYSTEMS: Negative other than history of present illness. PHYSICAL EXAMINATION: VITAL SIGNS: Temperature 97.8, pulse 61, blood pressure 158/85, respiratory rate 18, and saturating 100% on 2 L. GENERAL: He is in no distress. AAO x1. HEENT: Normocephalic and atraumatic. Oropharynx is clear with moist mucous membranes. NECK: Supple without lymphadenopathy or JVD. CHEST: Coarse bilateral breath sounds. HEART: Regular rate and rhythm. ABDOMEN: Soft, nontender, and nondistended. EXTREMITIES: No cyanosis, clubbing or edema. ANCILLARY DATA: ABG 7.4/38/72/23/94. White count 10.05, hemoglobin , and platelet count 203. INR 1.3. Sodium 142, potassium 3.9, chloride 100, bicarb 28, BUN 15, creatinine 1.2, glucose 87. Hemoglobin A1c 6.2. Lactic acid 3 and then 2. Calcium 8.4, phosphorus 3, magnesium 1.5. Total bilirubin 0.5. AST 16, ALT 13, alkaline phosphatase 84, ammonia 20. Troponin 0.245 and repeat 0.138. Total protein 6.1, albumin 2.5. Urinalysis, 3+ protein. Chest x-ray, no acute findings. CT of the brain, no acute findings. ASSESSMENT: The patient is a 68-year-old male half-way resident with prior embolic CVA, PFO on Xarelto, diabetes, hypertension, hyperlipidemia, seizure disorder, presenting with altered mental status secondary to tracheobronchitis, likely encephalopathy as well as elevated cardiac biomarkers likely secondary to demand ischemia. He is fairly stable from a respiratory standpoint. PROBLEM LIST: 1. Healthcare associated tracheobronchitis/early pneumonia. 2. Leukocytosis, likely secondary to above. 3. Altered mental status, likely encephalopathy on top of underlying prior CVA. 4. Diabetes. 5. Hypertension. 6. History of PFO. TREATMENT PLAN: 1. Optimize pulmonary hygiene/mobilize as tolerated. 2. Continue antibiotics per ID. The patient is on Zosyn for (healthcare associated coverage) 3. Titrate down O2 to keep saturations greater than 90%. 4. P.r.n. DuoNebs. 5. Swallow evaluation/aspiration precautions. 6. Continue antiepileptic drugs. 7. Neurology evaluation. 8. Monitor mental status. 9. DVT prophylaxis. Continue with Xarelto. 10. planning back to facility. Dr. Mansfield, thank you for allowing me to assist in the care of your patient. If I may be of any assistance in the future, please do not hesitate to ask. Gavin Lopez M.D. DR: Oksana JOB#: [id number] CC:
--- NOTE | 2019-07-30 19:56 | NUR ---
NURSE NOTES: Report given to ROBIN Larios. patient in restraints with good cms to all extremities. No sign of cardiac or respiratory distress. Bed in lowest, locked position with call fernandez in reach and condom cath in place with no leakage. Addendum: 07/30/19 at 2001 by Baldomero Eckert RN Patient was aox2 with some verbal , coherent communication now and opening eyes spontaneously. NPO cont'd (except for meds wtih nectar thick / apple sauce) until video swallow eval done with Speech therapy tomorrow, as told to this RN by Speech Therapist. Endorsed same to radha KELLY.
[2019-07-30 20:00] VITALS: BP 155/87
--- NOTE | 2019-07-30 20:00 | NUR ---
NURSE NOTES: Report received from Padilla KELLY. Patient is observed in bed, asleep but arousable by voice. Respiratory even and unlabored. Patient is on 2L NC saturating at 98%. IVF is running at a prescribed rate. Bed is in lowest position with side rails up x2 and brakes are engaged. Bed alarm is on. Will continue to monitor.
[2019-07-30] MEDS: Atorvastatin 20mg tab ORAL SCH (21:14)
[2019-07-31] VITALS (8 sets, daily range): BP systolic 144–169; BP diastolic 83–88
--- NOTE | 2019-07-31 | NUR ---
NURSE NOTES: Patient continues to attempt to get out of bed without assistance. Patient is high risk for fall. Patient is also observed removing medical records coordinator such as bead picker and IV line. Attempted to reorient patient, however, unsccuessful. Patient's behaviors warrant continued use of restraints. Vital signs are WNL. Will continue frequent monitoring. Bed alarm is on. HOB is elevated. IVF is running at a prescribed rate.
[2019-07-31] MEDS: HydrALAZINE 25mg tab ORAL PRN ×2 (01:20→17:51)
[2019-07-31] MEDS: Piperacillin/Tazobactam 3.375 GM in NS 110 ML IVPB SCH ×3 (05:55→22:49)
[2019-07-31] MEDS: NovoLOG Insulin Flexpen SUBQ SCH ×4 (05:55→21:05)
--- NOTE | 2019-07-31 07:30 | NUR ---
HAND-OFF: Report given to Leatha KELLY. Patient is asleep but arousable by voice. No s/s of distress. Endorsed plan of care.
--- NOTE | 2019-07-31 07:32 | NUR ---
NURSE NOTES: Received report from ROBIN Larios in bed asleep. Patient is arousable to name and resting comfortably. Patient is A/Ox1-2 with episodes of confusion. No signs of acute cardiorespiratory distress noted. IV sites intact and patent. No erythema, bleeding or infiltration noted. Patient is on bilateral soft restraint. Bed is at lowest position, brakes engaged for safety, siderails x3. Call light within reach. Will continue with the plan of care.
[2019-07-31] MEDS: Docusate 250mg cap ORAL SCH (09:00)
[2019-07-31] MEDS: Lisinopril 20mg tab ORAL SCH (09:28)
[2019-07-31] MEDS: Aspirin Baby 81mg NG SCH (09:28)
[2019-07-31] MEDS: Xarelto 10mg tab ORAL SCH (09:29)
[2019-07-31] MEDS ORDERED: Varibar Pudding 230ml MC PRN (09:30)
[2019-07-31] MEDS ORDERED: Varibar Nectar 240ml MC PRN (09:30)
[2019-07-31] MEDS ORDERED: Varibar Honey 250ml MC PRN (09:30)
[2019-07-31] MEDS: Valproate Sodium INJ 500 MG in D5W 55 ML IVPB SCH ×2 (09:34→21:08)
--- NOTE | 2019-07-31 10:07 | NUR ---
REFERRED FOR [facility] FOR SWALLOWING EVALUATION, SEE FULL REPORT. DYSPHAGIA RISK FACTORS FOR THIS 68 Y.O. ADVANCED AGED MALE: ACUTE ISSUES: ACUTE POSSIBLE PNA AND HAS CARDIOMEGALY (SEE CXR AND ER REPORT) , ELEVATED TROPONIN, AMS H/O OROPHARYNGEAL DYSPHAGIA, GERD (ON PEPCID), OLD CVAS (R MCA AND MULTIPLE WITH REPORTEDLY SENIOR LOAN PROCESSOR AND APHASIA CURRENT CT HEAD SCAN 07/29/19 NOTED NEG FOR ACUTE HAS OLD AND MULTIPLE INFARCT RIGHT BASAL GANGLIA, AND ENCEPHALOMALACIA R TEMPORAL LOBE,PARIETAL LOBE, AND FRONTAL LOBE AND REMOTE INFARCTS IN CEREBELLAR HEMISPHERES), CKD, HNT, DIABETES, PSYCH (DELUSIONS. ANXIETY D/O), EPILEPSY, BILATERAL LENS IMPLANTS (POOR EYE CONTACT NOTED), 07/06/19 AT [facility] FOR POSSIBLE OD ON BENZODIAZEPINE OPIOID UNINTENTIONAL. POLST STATES LOADING DOCK HAND ARTIFICIAL NUTRITION OK CHECK WITH STEP SON DECISIONMAKER. AT SNF ON PUREED DIET AND NECTAR THICK LIQUIDS. NOW DAY 3 NO PO AND AWAITING MOD BARIUM SWALLOW STUDY. PER RNAWILDA, YESTERDAY, PT GROSSLY FUNCTIONAL WITH CRUSHED MEDS AND APPLESAUCE NO OVERT ASPIRATION. NO [facility] [place] TO DATE. PT ALERT BUT RESTLESS AND PULLS AT LINES. CAN SAY SOME WORDS (DYSARTHRIC/DYSPHONIC BREATHY/SOFT VOICE) BUT USUALLY WILL REPEAT OR ANSWER IN ONE WORD OR A SHORT PHRASE. VERY CONFUSED AND INCONSISTENT IN ANSWERING QUESTIONS AND POOR FOLLOWING ORAL COMMANDS. MISSING MOST TEETH. INITIAL IMPRESSIONS: S/S OF AT LEAST A MILD-MOD ORAL PREP AND OROPHARYNGEAL DYSPHAGIA WITH INCREASED OVERALL TRANSIT TIMES. GIVEN NECTAR THICK WATER HAD GOOD LIP CLOSURE AND TRIGGERED (FAIR HYOLARYNGEAL ELEVATION OF) SWALLOW IN 2 SECONDS, NO ORAL RESIDUE NOR OVERT ASPIRATION GIVEN PUREED TSP, TOOK 7 SECONDS PRIOR TO SWALLOW AND HAD NO ORAL RESIDUE NOR OVERT ASP SINCE HE HAS HIGH SILENT ASP RISK DUE TO OLD CVAS, CONSIDERING HOLDING FURTHER PO TRIALS/MEALS UNTIL MOD BARIUM SWALLOW STUDY TO FURTHER ASSESS SWALLOW, DETERMINE SILENT ASP RISK, AND ATTEMPT TRIAL TX. SKILLED DYSPHAGIA MANAGEMENT AND TX AND COG-COM EVAL/TX FOR COMMUNICATION TIPS EDUCATED/TRAINED RN (GEETA) [place] TO TAKE MEDS (WITH NECTAR THICK LIQUIDS MOST EFFICIENT AND CRUSHED MEDS). LEFT MESSAGE WITH DR GRANADOS. Addendum: 07/31/19 at 1015 by WILLAM PAREDES ORACLE DATABASE MANAGER PLAN: CONTINUE WITH NPO AND ORAL CARE FOR NOW. SINCE HE HAS HIGH SILENT ASP RISK DUE TO OLD CVAS, CONSIDERING HOLDING FURTHER PO TRIALS/MEALS UNTIL MOD BARIUM SWALLOW STUDY TO FURTHER ASSESS SWALLOW, DETERMINE SILENT ASP RISK, AND ATTEMPT TRIAL TX. SKILLED DYSPHAGIA MANAGEMENT AND TX AND COG-COM EVAL/TX FOR COMMUNICATION TIPS EDUCATED/TRAINED RN (GEETA) [place] TO TAKE MEDS (WITH NECTAR THICK LIQUIDS MOST EFFICIENT AND CRUSHED MEDS). LEFT MESSAGE WITH DR GRANADOS.
--- NOTE | 2019-07-31 12:08 | Infectious Diseases Prog Note ---
Assessment/Plan Assessment/Plan IMPRESSION: 1. early Pneumonia. 2. Hypoxemic respiratory failure. 3. Altered mental status. 4. Lactic acidosis. 5. Elevated troponin. 6. History of CVA and left-sided weakness. 7. Bradycardia RECOMMENDATION: We will continue with Zosyn Will f/u swallowing study Subjective ROS Limited/Unobtainable: Yes Constitutional: Denies: fever Neurologic: Reports: confusion, other - on restraint Allergies: Coded Allergies: No Known Allergies (Unverified , 07/29/19) Objective Vital Signs Last 24 Hour Vital Signs Date Time Temp Pulse Resp B/P (MAP) Pulse Ox O2 Delivery O2 Flow Rate FiO2 07/31/19 09:28 169/86 07/31/19 09:00 Venturi Mask 07/31/19 08:51 99 Nasal Cannula 2.0 28 07/31/19 08:00 97.5 44 18 169/86 (113) 94 07/31/19 08:00 44 07/31/19 04:00 97.6 58 18 149/83 (105) 98 07/31/19 03:38 18 07/31/19 02:00 60 144/86 (105) 07/31/19 01:20 167/86 07/31/19 01:20 168/86 (113) 07/31/19 00:30 98.0 50 18 167/86 (113) 98 07/30/19 23:46 45 07/30/19 21:00 Venturi Mask 07/30/19 20:00 98.2 61 18 155/87 (109) 98 07/30/19 19:29 97 Nasal Cannula 2.0 28 07/30/19 19:01 61 07/30/19 16:00 98.2 81 20 109/69 (82) 95 07/30/19 16:00 68 Height (Feet): 5 Height (Inches): 8.00 Weight (Pounds): 150 General Appearance: no acute distress HEENT: mucous membranes moist Respiratory/Chest: lungs clear Cardiovascular: bradycardia Abdomen: soft, non tender Extremities: no edema Neurologic/Psychiatric: alert, responsive Microbiology Date/Time Source Procedure Growth Status 07/29/19 17:15 Blood Blood Culture - Preliminary NO GROWTH AFTER 24 HOURS Resulted 07/29/19 13:00 Blood Blood Culture - Preliminary NO GROWTH AFTER 24 HOURS Resulted Current Medications Medications (Trade) Dose Ordered Sig/Rhonda Route PRN Reason Start Time Stop Time Status Last Admin Dose Admin Acetaminophen (Tylenol) 650 mg Q4H PRN ORAL Mild Pain/Temp > 100.5 07/29/19 19:45 08/28/19 19:44 Albuterol/ Ipratropium (Albuterol/ Ipratropium) 3 ml Q8H PRN HHN Shortness of Breath 07/29/19 19:45 08/03/19 19:44 Aspirin (ASA) 81 mg DAILY NG 07/30/19 09:00 08/29/19 08:59 07/31/19 09:28 Atorvastatin Calcium (Lipitor) 20 mg BEDTIME ORAL 07/29/19 21:00 08/28/19 20:59 07/30/19 21:14 Barium Sulfate (Varibar Honey) 250 ml NOW PRN RAD 07/31/19 09:30 08/03/19 09:29 Barium Sulfate (Varibar [place]) 240 ml NOW PRN RAD 07/31/19 09:30 08/03/19 09:29 Barium Sulfate (Varibar Pudding) 230 ml NOW PRN RAD 07/31/19 09:30 08/03/19 09:29 Clonazepam (KlonoPIN) 1 mg Q12H PRN ORAL For Anxiety 07/29/19 19:45 08/05/19 19:44 Dextrose (Dextrose 50%) 25 ml Q30M PRN IV Hypoglycemia 07/29/19 18:45 08/28/19 18:44 07/29/19 22:19 Dextrose (Dextrose 50%) 50 ml Q30M PRN IV Hypoglycemia 07/29/19 18:45 08/28/19 18:44 Docusate Sodium (Colace) 250 mg DAILY ORAL 07/30/19 09:00 08/29/19 08:59 07/31/19 09:00 Famotidine (Pepcid) 20 mg DAILY ORAL 07/30/19 09:00 08/29/19 08:59 07/31/19 09:28 Hydralazine HCl (Apresoline) 25 mg Q6H PRN ORAL For High Blood Pressure 07/29/19 19:45 08/28/19 19:44 07/31/19 01:20 Insulin Aspart (NovoLOG) BEFORE MEALS AND HS SUBQ 07/29/19 21:00 08/28/19 20:59 Lisinopril (Prinivil) 40 mg DAILY ORAL 07/30/19 09:00 08/29/19 08:59 07/31/19 09:28 Ondansetron HCl (Zofran) 4 mg Q6H PRN IVP Nausea & Vomiting 07/29/19 19:45 08/28/19 19:44 Piperacillin Sod/ Tazobactam Sod 3.375 gm/Sodium Chloride 110 ml @ 27.5 mls/hr Q8HR IVPB 07/29/19 22:00 08/05/19 21:59 07/31/19 05:55 Quetiapine Fumarate (SEROquel) 50 mg DAILYPRN PRN ORAL HALLUCINATIONS 07/29/19 19:45 08/28/19 19:44 Rivaroxaban (Xarelto) 20 mg DAILY ORAL 07/30/19 09:00 08/29/19 08:59 07/31/19 09:29 Sodium Chloride 1,000 ml @ 75 mls/hr [id number] IV 07/29/19 19:15 08/28/19 19:14 07/30/19 21:55 Tramadol HCl (Ultram) 50 mg Q6H PRN ORAL severe pain 07/29/19 19:45 08/05/19 19:44 Valproate Sodium 500 mg/Dextrose 60 ml @ 60 mls/hr Q12HR IVPB 07/29/19 21:00 08/28/19 20:59 07/31/19 09:34 Hernán Buitrago MD Jul 31, 2019 12:08
--- NOTE | 2019-07-31 12:32 | Pulmonology Progress Note ---
Assessment/Plan Problems: (1) Sepsis (2) Pneumonia (3) Acidosis (4) Altered mental status (5) Elevated troponin Assessment/Plan PULMONARY PROGRESS NOTE & INTERNAL MEDICINE COVERAGE FOR DR. 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 He is fairly stable from a respiratory standpoint. PROBLEM LIST: 1. Healthcare associated tracheobronchitis/early pneumonia. 2. Leukocytosis, likely secondary to above. 3. Altered mental status, likely encephalopathy on top of underlying prior CVA. 4. Diabetes. 5. Hypertension. 6. History of PFO. TREATMENT PLAN: 1. Optimize pulmonary hygiene/mobilize as tolerated. 2. Continue antibiotics per ID. The patient is on Zosyn for (healthcare associated coverage) 3. Titrate down O2 to keep saturations greater than 90%. 4. P.r.n. DuoNebs. 5. Diet per [employer]CH ME[employer]IC with STRICT aspiration precautions. 6. Continue antiepileptic drugs. 7. PT/OT/[employer]CH MECH[employer]IC 8. Monitor mental status. 9. BP control, continue Lisinopril, add Norvasc 10. DVT prophylaxis. Continue with Xarelto. 11.Dispo planning back to facility. Subjective Allergies: Coded Allergies: No Known Allergies (Unverified , 07/29/19) Subjective BP elevated afebrile [employer] eval noted no change in MS confused + cough + SOB no FC Objective Last 24 Hour Vital Signs Date Time Temp Pulse Resp B/P (MAP) Pulse Ox O2 Delivery O2 Flow Rate FiO2 07/31/19 12:00 97.6 50 18 159/88 (111) 95 07/31/19 09:28 169/86 07/31/19 09:00 Venturi Mask 07/31/19 08:51 99 Nasal Cannula 2.0 28 07/31/19 08:00 97.5 44 18 169/86 (113) 94 07/31/19 08:00 44 07/31/19 04:00 97.6 58 18 149/83 (105) 98 07/31/19 03:38 18 07/31/19 02:00 60 144/86 (105) 07/31/19 01:20 167/86 07/31/19 01:20 168/86 (113) 07/31/19 00:30 98.0 50 18 167/86 (113) 98 07/30/19 23:46 45 07/30/19 21:00 Venturi Mask 07/30/19 20:00 98.2 61 18 155/87 (109) 98 07/30/19 19:29 97 Nasal Cannula 2.0 28 07/30/19 19:01 61 07/30/19 16:00 98.2 81 20 109/69 (82) 95 07/30/19 16:00 68 Intake and Output 07/30/19 07/31/19 19:00 07:00 Output Total 400 ml 1500 ml Balance -400 ml -1500 ml Output Urine Total 400 ml 1500 ml General Appearance: no acute distress, cachetic HEENT: normocephalic, atraumatic, anicteric, mucous membranes moist Respiratory/Chest: rhonchi Cardiovascular: normal peripheral pulses, normal rate, regular rhythm Abdomen: normal bowel sounds, soft, non tender, no organomegaly, non distended , no mass Extremities: no cyanosis, no clubbing, no edema Microbiology Date/Time Source Procedure Growth Status 07/29/19 17:15 Blood Blood Culture - Preliminary NO GROWTH AFTER 24 HOURS Resulted 07/29/19 13:00 Blood Blood Culture - Preliminary NO GROWTH AFTER 24 HOURS Resulted Current Medications Medications (Trade) Dose Ordered Sig/Rhonda Route PRN Reason Start Time Stop Time Status Last Admin Dose Admin Acetaminophen (Tylenol) 650 mg Q4H PRN ORAL Mild Pain/Temp > 100.5 07/29/19 19:45 08/28/19 19:44 Albuterol/ Ipratropium (Albuterol/ Ipratropium) 3 ml Q8H PRN HHN Shortness of Breath 07/29/19 19:45 08/03/19 19:44 Aspirin (ASA) 81 mg DAILY NG 07/30/19 09:00 08/29/19 08:59 07/31/19 09:28 Atorvastatin Calcium (Lipitor) 20 mg BEDTIME ORAL 07/29/19 21:00 08/28/19 20:59 07/30/19 21:14 Barium Sulfate (Varibar Honey) 250 ml NOW PRN MC RAD 07/31/19 09:30 08/03/19 09:29 Barium Sulfate (Varibar [place]) 240 ml NOW PRN RAD 07/31/19 09:30 08/03/19 09:29 Barium Sulfate (Varibar Pudding) 230 ml NOW PRN RAD 07/31/19 09:30 08/03/19 09:29 Clonazepam (KlonoPIN) 1 mg Q12H PRN ORAL For Anxiety 07/29/19 19:45 08/05/19 19:44 Dextrose (Dextrose 50%) 25 ml Q30M PRN IV Hypoglycemia 07/29/19 18:45 08/28/19 18:44 07/29/19 22:19 Dextrose (Dextrose 50%) 50 ml Q30M PRN IV Hypoglycemia 07/29/19 18:45 08/28/19 18:44 Docusate Sodium (Colace) 250 mg DAILY ORAL 07/30/19 09:00 08/29/19 08:59 07/31/19 09:00 Famotidine (Pepcid) 20 mg DAILY ORAL 07/30/19 09:00 08/29/19 08:59 07/31/19 09:28 Hydralazine HCl (Apresoline) 25 mg Q6H PRN ORAL For High Blood Pressure 07/29/19 19:45 08/28/19 19:44 07/31/19 01:20 Insulin Aspart (NovoLOG) BEFORE MEALS AND HS SUBQ 07/29/19 21:00 08/28/19 20:59 Lisinopril (Prinivil) 40 mg DAILY ORAL 07/30/19 09:00 08/29/19 08:59 07/31/19 09:28 Ondansetron HCl (Zofran) 4 mg Q6H PRN IVP Nausea & Vomiting 07/29/19 19:45 08/28/19 19:44 Piperacillin Sod/ Tazobactam Sod 3.375 gm/Sodium Chloride 110 ml @ 27.5 mls/hr Q8HR IVPB 07/29/19 22:00 08/05/19 21:59 07/31/19 05:55 Quetiapine Fumarate (SEROquel) 50 mg DAILYPRN PRN ORAL HALLUCINATIONS 07/29/19 19:45 08/28/19 19:44 Rivaroxaban (Xarelto) 20 mg DAILY ORAL 07/30/19 09:00 08/29/19 08:59 07/31/19 09:29 Sodium Chloride 1,000 ml @ 75 mls/hr [id number] IV 07/29/19 19:15 08/28/19 19:14 07/30/19 21:55 Tramadol HCl (Ultram) 50 mg Q6H PRN ORAL severe pain 07/29/19 19:45 08/05/19 19:44 Valproate Sodium 500 mg/Dextrose 60 ml @ 60 mls/hr Q12HR IVPB 07/29/19 21:00 08/28/19 20:59 07/31/19 09:34 Gavin Lopez MD Jul 31, 2019 12:32
--- NOTE | 2019-07-31 13:28 | NUR ---
NOTES: COMPLETED MODIFIED BARIUM SWALLOW STUDY, SEE FULL REPORT TO FOLLOW IN CARE ACTIVITY SECTION OR CALL [phone]. 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 THIN LIQUIDS 1 TSP WARMUP SWALLOW TRACE PENETRATION ABOVE VOCAL FOLDS WITH EJECTION DUE TO LATE SWALLOW/CLOSURE OF LARYNGEAL VESTIBULE 2ND TSP NO ASP NO PENETRATION CUP NO ASP/PENE BUT HAD RISK MOSTLY AFTER SWALLOW DUE TO REDUCED BOLUS CONTROL AND OROPHARYNGEAL SENSATION FOR ORAL RESIDUE (IN MOUTH OR BOLUS THAT SPILLED OVER INTO VALLECULAE, NEEDED CUES FOR 2ND SWALLOW AND DID NOT ALWAYS COMPLETE. CUP WASH (AFTER PUDDING) TRACE AUDIBLE ASPIRATION WITH WEAK COUGH NO EJECTION (despite effort) DUE TO DELAYED SWALLOW AND INCOMPLETE/LATE CLOSURE OF LARYNGEAL VESTIBULE. CNT STRAW SEQUENTIAL POOR SUCTION ABILITY AND CANNOT HOLD CUP EITHER NECTAR THICK LIQUIDS TSP/CUP NO ASP/LARYNGEAL PENETRATION (LP) BUT HAS RISK AFTER SWALLOW DUE TO REDUCED BOLUS CONTROL AND REDUCED SENSATION TO CLEAR THAT MILD RESIDUE (EVEN WITH VERBAL CUES) HONEY THICK LIQUIDS TSP AND PUREED TSP NO ASP/LP HAS RISK AFTER THE SWALLOW DUE TO OROPHARYNGEAL DYSMOTILITY AND REDUCED SENSATION FOR RESIDUE. DID NOT GIVE MASTICATED SOLID SINCE MIN DENTITION COMPONENTS AND DEFICITS THAT INCREASE ASP/LP RISK AND REDUCED SWALLOW EFFICIENCY: Oral prep impairment no leakage but did not close lips oral apraxia even with max cues (usually with cup and residential treatment counselor had to poor liquid in) Oral Impairment Tongue Control Bolus transport/lingual motion martha HONEY 3 SEC PUREED 5 SEC Oral residue Init. pharyngeal swallow (2ND SWALLOW TO OP RESIDUE DELAYED 10 SECONDS DUE TO POOR SENSATION) Pharyngeal Impairment Soft palate elevation Laryngeal elevation (LE) Ant. hyoid excursion Epiglottic movement Late and incomplete laryngeal vestibule closure Pharyngeal stripping wave Pharyngoesophageal segment opening Tongue base retraction Pharyngeal residue Decreased pharyngeal sensation Esophageal phase mostly functional once when he coughed/aspirated with thin liquid cup wash it made him have some backflow through the pes opening. Limited view in lateral. BENEFITS FROM: MORE TIME, SMALL AMOUNTS, ONE SIP AT A TIME, SAFEST WITH NECTAR THICK LIQUIDS, EXTRA HARD SWALLOWS, NO STRAW, CUP (SQUEEZE TO MAKE INTO A SPOUT), NOT ABLE TO FOLLOW COMMAND FOR CHIN TUCK (WOULD STIFFEN UP IF GIVEN TACTILE ASSIST) AND DID NOT UNDERSTAND EFFORTFUL BREATH HOLD RECOMMENDATIONS: CONSIDER INITIATING PUREED DIET AND NECTAR THICK LIQUIDS WITH POSTED ASPIRATION/REFLUX PRECAUTIONS WITH ONE TO ONE FEEDING. NO STRAW. SKILLED DYSPHAGIA MANAGEMENT AND TX EDUCATED/TRAINED ROBIN CONNOR IN POSTED PRECAUTIONS. LEFT MESSAGE WITH DR GRANADOS
--- NOTE | 2019-07-31 15:30 | NUR ---
NURSE NOTES: Report received from ROBIN Hollingsworth. Pt. AOx1. In RA. Denies any pain or SOB. No breathing distress noted. IV Zosyn started. Seizures precaution in place. Bed on lowest position, side rails upx2, brakes engaged. Call light within easy reach.
--- NOTE | 2019-07-31 16:30 | NUR ---
NURSE NOTES: TV turned on. Repositioned for comfort, changed. Released restraint, site assessed.
--- NOTE | 2019-07-31 19:43 | NUR ---
HAND-OFF: Report given to ROBIN Ramirez. Pt. in stable condition. Plan of care endorsed.
--- NOTE | 2019-07-31 19:45 | NUR ---
NURSE NOTES: Received pt from ROBIN Bueno. Pt is awake resting in bed, in no acute distress. IV site intact. soft Wrist restraint bilateral on, 2 finger lengths space, pulse patent. will continue with plan of care.
[2019-07-31] MEDS: Atorvastatin 20mg tab ORAL SCH (21:05)
[2019-08-01] VITALS (7 sets, daily range): BP systolic 155–172; BP diastolic 80–96
[2019-08-01] MEDS: HydrALAZINE 25mg tab ORAL PRN ×2 (00:01→06:13)
[2019-08-01] MEDS: Piperacillin/Tazobactam 3.375 GM in NS 110 ML IVPB SCH ×3 (06:14→21:48)
[2019-08-01] MEDS: NovoLOG Insulin Flexpen SUBQ SCH ×4 (06:30→20:47)
--- NOTE | 2019-08-01 07:30 | NUR ---
NURSE NOTES: Received report from Corey KELLY. Pt awake and confused but able to follow the simple direction. Bed in lowest position and locked. No c/o pain at this time. No SOB noted on 2LPM via N/C. sinus bradycardia reported from previous shift. Bilateral soft wrist restrains noted and intact and no skin breakdown noted on restraint site. Call light within east reach. Skin intact. Will continue to plan of care.
--- NOTE | 2019-08-01 07:30 | NUR ---
HAND-OFF: Report given to ROBIN Smith. Pt is awake and resting in bed. Endorsed plan of care.
[2019-08-01] MEDS: Docusate 250mg cap ORAL SCH (08:44)
[2019-08-01] MEDS: Lisinopril 20mg tab ORAL SCH (08:45)
[2019-08-01] MEDS: Aspirin Baby 81mg NG SCH (08:45)
[2019-08-01] MEDS: Xarelto 10mg tab ORAL SCH (08:45)
[2019-08-01] MEDS: Valproate Sodium INJ 500 MG in D5W 55 ML IVPB SCH ×2 (09:18→20:45)
--- NOTE | 2019-08-01 10:42 | NUR ---
NURSE NOTES: Dr. Mansfield came and checked the patient and ordered no cardiology consult for the patient due to bradycardia or low Mg
--- NOTE | 2019-08-01 10:58 | Internal Med Progress Note ---
Subjective Date of Service: Aug 01, 2019 Physician Name Salvador Mansfield Attending Physician Salvador Mansfield MD Current Medications Medications (Trade) Dose Ordered Sig/Rhonda Route PRN Reason Start Time Stop Time Status Last Admin Dose Admin Acetaminophen (Tylenol) 650 mg Q4H PRN ORAL Mild Pain/Temp > 100.5 07/29/19 19:45 08/28/19 19:44 Albuterol/ Ipratropium (Albuterol/ Ipratropium) 3 ml Q8H PRN HHN Shortness of Breath 07/29/19 19:45 08/03/19 19:44 Amlodipine Besylate (Norvasc) 5 mg DAILY ORAL 08/01/19 09:00 08/31/19 08:59 08/01/19 08:45 Aspirin (ASA) 81 mg DAILY NG 07/30/19 09:00 08/29/19 08:59 08/01/19 08:45 Atorvastatin Calcium (Lipitor) 20 mg BEDTIME ORAL 07/29/19 21:00 08/28/19 20:59 07/31/19 21:05 Barium Sulfate (Varibar [place]) 250 ml NOW PRN RAD 07/31/19 09:30 08/03/19 09:29 Barium Sulfate (Varibar [place]) 240 ml NOW PRN RAD 07/31/19 09:30 08/03/19 09:29 Barium Sulfate (Varibar Pud[place]) 230 ml NOW PRN RAD 07/31/19 09:30 08/03/19 09:29 Clonazepam (KlonoPIN) 1 mg Q12H PRN ORAL For Anxiety 07/29/19 19:45 08/05/19 19:44 Dextrose (Dextrose 50%) 25 ml Q30M PRN IV Hypoglycemia 07/29/19 18:45 08/28/19 18:44 07/29/19 22:19 Dextrose (Dextrose 50%) 50 ml Q30M PRN IV Hypoglycemia 07/29/19 18:45 08/28/19 18:44 Docusate Sodium (Colace) 250 mg DAILY ORAL 07/30/19 09:00 08/29/19 08:59 08/01/19 08:44 Famotidine (Pepcid) 20 mg DAILY ORAL 07/30/19 09:00 08/29/19 08:59 08/01/19 08:44 Hydralazine HCl (Apresoline) 25 mg Q6H PRN ORAL For High Blood Pressure 07/29/19 19:45 08/28/19 19:44 08/01/19 06:13 Insulin Aspart (NovoLOG) BEFORE MEALS AND HS SUBQ 07/29/19 21:00 08/28/19 20:59 07/31/19 21:05 Lisinopril (Prinivil) 40 mg DAILY ORAL 07/30/19 09:00 08/29/19 08:59 08/01/19 08:45 Ondansetron HCl (Zofran) 4 mg Q6H PRN IVP Nausea & Vomiting 07/29/19 19:45 08/28/19 19:44 Piperacillin Sod/ Tazobactam Sod 3.375 gm/Sodium Chloride 110 ml @ 27.5 mls/hr Q8HR IVPB 07/29/19 22:00 08/05/19 21:59 08/01/19 06:14 Quetiapine Fumarate (SEROquel) 50 mg DAILYPRN PRN ORAL HALLUCINATIONS 07/29/19 19:45 08/28/19 19:44 Rivaroxaban (Xarelto) 20 mg DAILY ORAL 07/30/19 09:00 08/29/19 08:59 08/01/19 08:45 Tramadol HCl (Ultram) 50 mg Q6H PRN ORAL severe pain 07/29/19 19:45 08/05/19 19:44 Valproate Sodium 500 mg/Dextrose 60 ml @ 60 mls/hr Q12HR IVPB 07/29/19 21:00 08/28/19 20:59 08/01/19 09:18 Allergies: Coded Allergies: No Known Allergies (Unverified , 07/29/19) ROS Limited/Unobtainable: Yes Constitutional: Reports: no symptoms HEENT: Reports: no symptoms Cardiovascular: Reports: no symptoms Respiratory: Reports: cough Gastrointestinal/Abdominal: Reports: no symptoms Genitourinary: Reports: no symptoms, other - higgins Neurologic/Psychiatric: Reports: pre-existing deficit, weakness Objective Last Vital Signs Date Time Temp Pulse Resp B/P (MAP) Pulse Ox O2 Delivery O2 Flow Rate FiO2 08/01/19 08:45 73 172/89 08/01/19 08:00 97.3 20 100 07/31/19 21:00 Venturi Mask 07/31/19 20:07 2.0 28 General Appearance: no apparent distress EENT: PERRL/EOMI Neck: supple Cardiovascular: normal rate, no JVD, systolic murmur Respiratory/Chest: rhonchi - bilaterally Abdomen: normal bowel sounds, non tender, soft, no organomegaly, no mass Genitourinary/Rectal: other - higgins Extremities: non-tender, normal inspection, no calf tenderness Edema: non-pitting Neurologic: responsive, no Babinski, no pronator, disoriented Skin: warm/dry Microbiology Date/Time Source Procedure Growth Status 07/29/19 17:15 Blood Blood Culture - Preliminary NO GROWTH AFTER 48 HOURS Resulted 07/29/19 13:00 Blood Blood Culture - Preliminary NO GROWTH AFTER 48 HOURS Resulted 07/30/19 06:00 Nasal Nares MRSA Culture - Final NO METHICILLIN RESISTANT STAPH AUREUS... Complete Intake and Output 07/31/19 08/01/19 18:59 06:59 Intake Total 240 ml 100 ml Output Total 300 ml Balance -60 ml 100 ml Intake Oral 240 ml 100 ml Output Urine Total 300 ml # Voids 2 2 # Bowel Movements 2 Assessment/Plan Status: doing well, stable, progressing, tolerating diet Assessment/Plan assessment: acute toxic encephalopathy elevated troponin SIRS leukocytosis health facility pneumomia bradycardia uncontrolled HTN DM seizure disorder hx CVA lactic acidosis hypomagnesemia PLAN : IV abx per ID IV mag sulfate replete 3 gram today increase norvasc to 10 mg daily aspiration precaution,m seizure precaution Cardiology eval tele BP control glycemic control lab today pulm HHN diet per [employer] 2D ECHO wrist soft restraint as needed for safety Salvador Mansfield MD [phone] Over 35 min spent today Salvador Mansfield MD Aug 01, 2019 10:58
[2019-08-01 11:48] LABS: BASOPHILS % (AUTO) 0.7 % (0.0-2.0); EOSINOPHILS % (AUTO) 1.3 % (0.0-3.0); HEMATOCRIT 40.8 % (42.0-52.0); HEMOGLOBIN 13.8 G/DL (14.2-18.0); LYMPHOCYTES % (AUTO) 22.4 % (20.0-45.0); MEAN CORPUSCULAR VOLUME 88 FL (80-99); MONOCYTES % (AUTO) 8.5 % (1.0-10.0); NEUTROPHILS % (AUTO) 67.1 % (45.0-75.0); PLATELET COUNT 234 K/UL (150-450); RED BLOOD COUNT 4.66 M/UL (4.70-6.10); WHITE BLOOD COUNT 7.3 K/UL (4.8-10.8)
[2019-08-01 12:03] LABS: ANION GAP 4 mmol/L (5-15); BLOOD UREA NITROGEN 9 mg/dL (7-18); CALCIUM 8.5 MG/DL (8.5-10.1); CARBON DIOXIDE 28 MMOL/L (21-32); CHLORIDE 108 MMOL/L (98-107); CREATININE 1.2 MG/DL (0.55-1.30); POTASSIUM 3.6 MMOL/L (3.5-5.1); SODIUM 140 MMOL/L (136-145)
--- NOTE | 2019-08-01 13:00 | NUR ---
NURSE NOTES: The patient found with tourniquet holding on his right wrist during hourly rounding at 12:19pm. No circulation noted with evidence of purple colored skin. After the tourniquet's released from the patient's wrist and noted deep skin sonia on his right wrist. Reported to Rosalina, the shift charge nurse and reassesed circulation again. The skin intact without poor circulation noted.
--- NOTE | 2019-08-01 13:14 | Infectious Diseases Prog Note ---
Assessment/Plan Assessment/Plan IMPRESSION: 1. early Pneumonia. 2. Hypoxemic respiratory failure. 3. Altered mental status. 4. Lactic acidosis. 5. Elevated troponin. 6. History of CVA and left-sided weakness. 7. Bradycardia RECOMMENDATION: We will continue with Namitasyjose Subjective ROS Limited/Unobtainable: Yes Constitutional: Denies: fever Allergies: Coded Allergies: No Known Allergies (Unverified , 07/29/19) Objective Vital Signs Last 24 Hour Vital Signs Date Time Temp Pulse Resp B/P (MAP) Pulse Ox O2 Delivery O2 Flow Rate FiO2 08/01/19 11:21 73 172/89 08/01/19 09:00 Nasal Cannula 2.0 08/01/19 08:45 73 172/89 08/01/19 08:45 172/89 08/01/19 08:06 99 Nasal Cannula 2.0 28 08/01/19 08:00 69 08/01/19 08:00 97.3 73 20 172/89 (116) 100 08/01/19 06:13 175/81 08/01/19 04:00 97.7 43 20 162/80 (107) 98 08/01/19 04:00 43 08/01/19 00:01 171/92 08/01/19 00:00 53 08/01/19 00:00 97.2 53 20 155/81 (105) 98 07/31/19 21:00 Venturi Mask 07/31/19 20:07 98 Nasal Cannula 2.0 28 07/31/19 20:00 57 07/31/19 20:00 97.9 57 18 157/86 (109) 96 07/31/19 17:51 165/85 07/31/19 16:00 97.8 61 18 158/83 (108) 97 07/31/19 16:00 61 Height (Feet): 5 Height (Inches): 8.00 Weight (Pounds): 148 General Appearance: no acute distress HEENT: mucous membranes moist Respiratory/Chest: lungs clear Cardiovascular: normal rate Abdomen: soft, non tender Extremities: no edema Neurologic/Psychiatric: other - sleeping Microbiology Date/Time Source Procedure Growth Status 07/29/19 17:15 Blood Blood Culture - Preliminary NO GROWTH AFTER 48 HOURS Resulted 07/30/19 06:00 Nasal Nares MRSA Culture - Final NO METHICILLIN RESISTANT STAPH AUREUS... Complete Laboratory Tests Test 08/01/19 11:15 White Blood Count 7.3 K/UL (4.8-10.8) Red Blood Count 4.66 M/UL (4.70-6.10) L Hemoglobin 13.8 G/DL (14.2-18.0) L Hematocrit 40.8 % (42.0-52.0) L Mean Corpuscular Volume 88 FL (80-99) Mean Corpuscular Hemoglobin 29.7 PG (27.0-31.0) Mean Corpuscular Hemoglobin Concent 33.9 G/DL (32.0-36.0) Red Cell Distribution Width 12.0 % (11.6-14.8) Platelet Count 234 K/UL (150-450) Mean Platelet Volume 5.3 FL (6.5-10.1) L Neutrophils (%) (Auto) 67.1 % (45.0-75.0) Lymphocytes (%) (Auto) 22.4 % (20.0-45.0) Monocytes (%) (Auto) 8.5 % (1.0-10.0) Eosinophils (%) (Auto) 1.3 % (0.0-3.0) Basophils (%) (Auto) 0.7 % (0.0-2.0) Sodium Level 140 MMOL/L (136-145) Potassium Level 3.6 MMOL/L (3.5-5.1) Chloride Level 108 MMOL/L (98-107) H Carbon Dioxide Level 28 MMOL/L (21-32) Anion Gap 4 mmol/L (5-15) L Blood Urea Nitrogen 9 mg/dL (7-18) Creatinine 1.2 MG/DL (0.55-1.30) Estimat Glomerular Filtration Rate > 60 mL/min (>60) Glucose Level 185 MG/DL (74-106) H Calcium Level 8.5 MG/DL (8.5-10.1) Magnesium Level 1.6 MG/DL (1.8-2.4) L Troponin I 0.070 ng/mL (0.000-0.056) Current Medications Medications (Trade) Dose Ordered Sig/Rhonda Route PRN Reason Start Time Stop Time Status Last Admin Dose Admin Acetaminophen (Tylenol) 650 mg Q4H PRN ORAL Mild Pain/Temp > 100.5 07/29/19 19:45 08/28/19 19:44 Albuterol/ Ipratropium (Albuterol/ Ipratropium) 3 ml Q8H PRN HHN Shortness of Breath 07/29/19 19:45 08/03/19 19:44 Amlodipine Besylate (Norvasc) 5 mg DAILY ORAL 08/01/19 09:00 08/31/19 08:59 08/01/19 08:45 Amlodipine Besylate (Norvasc) 10 mg DAILY ORAL 08/02/19 09:00 09/01/19 08:59 Aspirin (ASA) 81 mg DAILY NG 07/30/19 09:00 08/29/19 08:59 08/01/19 08:45 Atorvastatin Calcium (Lipitor) 20 mg BEDTIME ORAL 07/29/19 21:00 08/28/19 20:59 07/31/19 21:05 Barium Sulfate (Varibar [place]) 250 ml NOW PRN MC RAD 07/31/19 09:30 08/03/19 09:29 Barium Sulfate (Varibar [place]) 240 ml NOW PRN MC RAD 07/31/19 09:30 08/03/19 09:29 Barium Sulfate (Varibar [place]) 230 ml NOW PRN MC RAD 07/31/19 09:30 08/03/19 09:29 Clonazepam (KlonoPIN) 1 mg Q12H PRN ORAL For Anxiety 07/29/19 19:45 08/05/19 19:44 Dextrose (Dextrose 50%) 25 ml Q30M PRN IV Hypoglycemia 07/29/19 18:45 08/28/19 18:44 07/29/19 22:19 Dextrose (Dextrose 50%) 50 ml Q30M PRN IV Hypoglycemia 07/29/19 18:45 08/28/19 18:44 Docusate Sodium (Colace) 250 mg DAILY ORAL 07/30/19 09:00 08/29/19 08:59 08/01/19 08:44 Famotidine (Pepcid) 20 mg DAILY ORAL 07/30/19 09:00 08/29/19 08:59 08/01/19 08:44 Hydralazine HCl (Apresoline) 25 mg Q6H PRN ORAL For High Blood Pressure 07/29/19 19:45 08/28/19 19:44 08/01/19 06:13 Insulin Aspart (NovoLOG) BEFORE MEALS AND HS SUBQ 07/29/19 21:00 08/28/19 20:59 08/01/19 12:56 Lisinopril (Prinivil) 40 mg DAILY ORAL 07/30/19 09:00 08/29/19 08:59 08/01/19 08:45 Magnesium Sulfate 100 ml @ 100 mls/hr Q1H IVPB 08/01/19 11:00 08/01/19 13:59 08/01/19 12:41 Ondansetron HCl (Zofran) 4 mg Q6H PRN IVP Nausea & Vomiting 07/29/19 19:45 08/28/19 19:44 Piperacillin Sod/ Tazobactam Sod 3.375 gm/Sodium Chloride 110 ml @ 27.5 mls/hr Q8HR IVPB 07/29/19 22:00 08/05/19 21:59 08/01/19 06:14 Quetiapine Fumarate (SEROquel) 50 mg DAILYPRN PRN ORAL HALLUCINATIONS 07/29/19 19:45 08/28/19 19:44 Rivaroxaban (Xarelto) 20 mg DAILY ORAL 07/30/19 09:00 08/29/19 08:59 08/01/19 08:45 Tramadol HCl (Ultram) 50 mg Q6H PRN ORAL severe pain 07/29/19 19:45 08/05/19 19:44 Valproate Sodium 500 mg/Dextrose 60 ml @ 60 mls/hr Q12HR IVPB 07/29/19 21:00 08/28/19 20:59 08/01/19 09:18 Hernán Buitrago MD Aug 01, 2019 13:14
--- NOTE | 2019-08-01 14:19 | NUR ---
P.T Note: P.T evaluation completed. Pt is alert, however essentially not following simple commands and resistive to all functional mobilities. Pt is currently baseline dependent in all areas of ADL/functional mobilities and not a candidate for skilled P.T services. DC P.T services. Recommend DC to prior living arrangement.
--- NOTE | 2019-08-01 15:54 | Cardiology Report ---
APPROVED REPORT EXAM: Two-dimensional and M-mode echocardiogram with Doppler and color Doppler. INDICATION CAD M-Mode DIMENSIONS IVSd1.3 (0.7-1.1cm)Left Atrium (MM)3.6 (1.6-4.0cm) LVDd4.8 (3.5-5.6cm)Aortic Root4.1 (2.0-3.7cm) PWd1.4 (0.7-1.1cm)Aortic Cusp Exc.2.2 (1.5-2.0cm) IVSs1.6 cm LVDs2.5 (2.5-4.0cm) PWs1.3 cm Technically difficult study due to combative patient. Normal left ventricular chamber size, systolic function and wall motion to extent visualized. Left ventricular ejection fraction estimated to be 60-65%. Mild left ventricular hypertrophy . No evidence of pericardial effusion present. All other cardiac chamber sizes are within normal limits. Focal aortic valve sclerosis with adequate cusp excursion. Thickened mitral valve leaflets with normal excursion. Mitral annulus and aortic root calcification. Normal pulmonic valve structure. Normal tricuspid valve structure. IVC at normal size with physiologic collapse. A color flow and spectral Doppler study was performed and revealed: Mild aortic regurgitation. Trace mitral regurgitation. Mild tricuspid regurgitation . Tricuspid systolic velocities suggests peak right ventricular systolic pressure of 27 mmHg. Trace pulmonic regurgitation .
--- NOTE | 2019-08-01 17:29 | Pulmonology Progress Note ---
Assessment/Plan Problems: (1) Sepsis (2) Pneumonia (3) Acidosis (4) Altered mental status (5) Elevated troponin Assessment/Plan ASSESSMENT: The patient is a 68-year-old male correction resident with prior embolic CVA, PFO on Xarelto, diabetes, hypertension, hyperlipidemia, seizure disorder, presenting with altered mental status secondary to tracheobronchitis, likely encephalopathy as well as elevated cardiac biomarkers likely secondary to demand ischemia. He is fairly stable from a respiratory standpoint. PROBLEM LIST: 1. Healthcare associated tracheobronchitis/early pneumonia. 2. Leukocytosis, likely secondary to above. 3. Altered mental status, likely encephalopathy on top of underlying prior CVA. 4. Diabetes. 5. Hypertension. 6. History of PFO. TREATMENT PLAN: 1. Optimize pulmonary hygiene/mobilize as tolerated. 2. Continue antibiotics per ID. The patient is on Zosyn for (healthcare associated coverage) 3. Titrate down O2 to keep saturations greater than 90%. 4. P.r.n. DuoNebs. 5. Diet per YARDING ENGINEER with STRICT aspiration precautions. 6. Continue antiepileptic drugs. 7. PT/OT/YARDING ENGINEER 8. Monitor mental status. 9. DVT prophylaxis. Continue with Xarelto. Subjective Allergies: Coded Allergies: No Known Allergies (Unverified , 07/29/19) Subjective AFVSS O2 needs stable no change in MS confused + cough + SOB no FC Objective Last 24 Hour Vital Signs Date Time Temp Pulse Resp B/P (MAP) Pulse Ox O2 Delivery O2 Flow Rate FiO2 08/01/19 12:00 67 08/01/19 12:00 97.4 70 20 167/96 (119) 100 08/01/19 11:21 73 172/89 08/01/19 09:00 Nasal Cannula 2.0 08/01/19 08:45 73 172/89 08/01/19 08:45 172/89 08/01/19 08:06 99 Nasal Cannula 2.0 28 08/01/19 08:00 69 08/01/19 08:00 97.3 73 20 172/89 (116) 100 08/01/19 06:13 175/81 08/01/19 04:00 97.7 43 20 162/80 (107) 98 08/01/19 04:00 43 08/01/19 00:01 171/92 08/01/19 00:00 53 10/16/19 00:00 97.2 53 20 155/81 (105) 98 07/31/19 21:00 Venturi Mask 07/31/19 20:07 98 Nasal Cannula 2.0 28 07/31/19 20:00 57 07/31/19 20:00 97.9 57 18 157/86 (109) 96 07/31/19 17:51 165/85 Intake and Output 07/31/19 08/01/19 19:00 07:00 Intake Total 240 ml 100 ml Output Total 300 ml Balance -60 ml 100 ml Intake Oral 240 ml 100 ml Output Urine Total 300 ml # Voids 2 2 # Bowel Movements 2 General Appearance: no acute distress, cachetic HEENT: normocephalic, atraumatic, anicteric, mucous membranes moist Respiratory/Chest: rhonchi Cardiovascular: normal peripheral pulses, normal rate, regular rhythm Abdomen: normal bowel sounds, soft, non tender, no organomegaly, non distended , no mass Extremities: no cyanosis, no clubbing, no edema Microbiology Date/Time Source Procedure Growth Status 07/30/19 06:00 Nasal Nares MRSA Culture - Final NO METHICILLIN RESISTANT STAPH AUREUS... Complete Laboratory Tests 08/01/19 11:15: White Blood Count 7.3, Red Blood Count 4.66L, Hemoglobin 13.8L, Hematocrit 40.8L , Mean Corpuscular Volume 88, Mean Corpuscular Hemoglobin 29.7, Mean Corpuscular Hemoglobin Concent 33.9, Red Cell Distribution Width 12.0, Platelet Count 234, Mean Platelet Volume 5.3L, Neutrophils (%) (Auto) 67.1, Lymphocytes ( %) (Auto) 22.4, Monocytes (%) (Auto) 8.5, Eosinophils (%) (Auto) 1.3, Basophils (%) (Auto) 0.7, Sodium Level 140, Potassium Level 3.6, Chloride Level 108H, Carbon Dioxide Level 28, Anion Gap 4L, Blood Urea Nitrogen 9, Creatinine 1.2, Estimat Glomerular Filtration Rate > 60, Glucose Level 185H, Calcium Level 8.5, Magnesium Level 1.6L, Troponin I 0.070H Current Medications Medications (Trade) Dose Ordered Sig/Rhonda Route PRN Reason Start Time Stop Time Status Last Admin Dose Admin Acetaminophen (Tylenol) 650 mg Q4H PRN ORAL Mild Pain/Temp > 100.5 07/29/19 19:45 08/28/19 19:44 Albuterol/ Ipratropium (Albuterol/ Ipratropium) 3 ml Q8H PRN HHN Shortness of Breath 07/29/19 19:45 08/03/19 19:44 Amlodipine Besylate (Norvasc) 5 mg DAILY ORAL 08/01/19 09:00 08/31/19 08:59 08/01/19 08:45 Amlodipine Besylate (Norvasc) 10 mg DAILY ORAL 08/02/19 09:00 09/01/19 08:59 Aspirin (ASA) 81 mg DAILY NG 07/30/19 09:00 08/29/19 08:59 08/01/19 08:45 Atorvastatin Calcium (Lipitor) 20 mg BEDTIME ORAL 07/29/19 21:00 08/28/19 20:59 07/31/19 21:05 Barium Sulfate (Varibar Honey) 250 ml NOW PRN MC RAD 07/31/19 09:30 08/03/19 09:29 Barium Sulfate (Varibar [place]) 240 ml NOW PRN MC RAD 07/31/19 09:30 08/03/19 09:29 Barium Sulfate (Varibar Pudding) 230 ml NOW PRN MC RAD 07/31/19 09:30 08/03/19 09:29 Clonazepam (KlonoPIN) 1 mg Q12H PRN ORAL For Anxiety 07/29/19 19:45 08/05/19 19:44 Dextrose (Dextrose 50%) 25 ml Q30M PRN IV Hypoglycemia 07/29/19 18:45 08/28/19 18:44 07/29/19 22:19 Dextrose (Dextrose 50%) 50 ml Q30M PRN IV Hypoglycemia 07/29/19 18:45 08/28/19 18:44 Docusate Sodium (Colace) 250 mg DAILY ORAL 07/30/19 09:00 08/29/19 08:59 08/01/19 08:44 Famotidine (Pepcid) 20 mg DAILY ORAL 07/30/19 09:00 08/29/19 08:59 08/01/19 08:44 Hydralazine HCl (Apresoline) 25 mg Q6H PRN ORAL For High Blood Pressure 07/29/19 19:45 08/28/19 19:44 08/01/19 06:13 Insulin Aspart (NovoLOG) BEFORE MEALS AND HS SUBQ 07/29/19 21:00 08/28/19 20:59 08/01/19 12:56 Lisinopril (Prinivil) 40 mg DAILY ORAL 07/30/19 09:00 08/29/19 08:59 08/01/19 08:45 Ondansetron HCl (Zofran) 4 mg Q6H PRN IVP Nausea & Vomiting 07/29/19 19:45 08/28/19 19:44 Piperacillin Sod/ Tazobactam Sod 3.375 gm/Sodium Chloride 110 ml @ 27.5 mls/hr Q8HR IVPB 07/29/19 22:00 08/05/19 21:59 08/01/19 14:16 Quetiapine Fumarate (SEROquel) 50 mg DAILYPRN PRN ORAL HALLUCINATIONS 07/29/19 19:45 08/28/19 19:44 Rivaroxaban (Xarelto) 20 mg DAILY ORAL 07/30/19 09:00 08/29/19 08:59 08/01/19 08:45 Tramadol HCl (Ultram) 50 mg Q6H PRN ORAL severe pain 07/29/19 19:45 08/05/19 19:44 Valproate Sodium 500 mg/Dextrose 60 ml @ 60 mls/hr Q12HR IVPB 07/29/19 21:00 08/28/19 20:59 08/01/19 09:18 Gavin Lopez MD Aug 01, 2019 17:29
--- NOTE | 2019-08-01 17:54 | NUR ---
SPEECH PATHOLOGY: PATIENT CLEARED FOR ST INTERVENTION BY ROBIN BOURNE. S: PATIENT SEEN AT BEDSIDE. HE REQUIRES SOFT RESTRAINTS DUE TO HIS ATTEMPTS TO GET OUT OF BED, PULLING ON LINES, AGITATION O: COGNITIVE/LINGUISTIC ASSESSMENT A: PATIENT PRESENTS WITH SEVERE COGNITIVE/LINGUISTIC IMPAIRMENT WHICH PREVENTS HIM FROM PARTICIPATING IN HIS MEDICAL CARE. ALL WANTS/NEEDS MUST BE ANTICIPATED BY STAFF HE REQUIRES TOTAL ASSIST WITH MEALS AND MUST BE FED PER MEALTIME PROTOCOL TO MINIMIZE RISK OF ASPIRATION HE DOES NOT VISUALLY TRACK SPEAKERS FACE HE IS UNABLE TO FOLLOW SIMPLE COMMANDS MINIMAL VOCALIZATIONS WHICH IMMEDIATELY BECAME PERSEVERATIVE ABSENCE OF Y/N RESPONSES P: PATIENT TOTALLY DEPENDENT ON STAFF FOR ALL WANTS/NEEDS COGNITIVE/LINGUISTIC SKILLS SEVERELY IMPAIRED
--- NOTE | 2019-08-01 19:20 | NUR ---
NURSE NOTES: Received pt and report from ROBIN Rayo. Observed pt resting in bed with both eyes open. Pt is A/Ox1. pvc monitor is in placed, IV site intact, asymptomatic, and patent. Bed is in the lowest position and locked. Call light within reach. No signs/symptoms of acute distress noted at this time. Will continue plan of care.
--- NOTE | 2019-08-01 19:25 | NUR ---
HAND-OFF: Report given to svetlana RN. Pt remains stable.
--- NOTE | 2019-08-01 19:47 | Cardiology Progress Note ---
Assessment/Plan Assessment/Plan [id number] pt multipl comorbidities would treat conservatively would ercommned medical managment repatr ekg adn trop of note ef has improved between 06/27 at [facility] study performed to day increase statin keep on ecotrien increase bp meds Objective Last 24 Hour Vital Signs Date Time Temp Pulse Resp B/P (MAP) Pulse Ox O2 Delivery O2 Flow Rate FiO2 08/01/19 16:00 56 08/01/19 16:00 98.1 59 20 165/92 (116) 100 08/01/19 12:00 67 08/01/19 12:00 97.4 70 20 167/96 (119) 100 08/01/19 11:21 73 172/89 08/01/19 09:00 Nasal Cannula 2.0 08/01/19 08:45 73 172/89 08/01/19 08:45 172/89 08/01/19 08:06 99 Nasal Cannula 2.0 28 08/01/19 08:00 69 08/01/19 08:00 97.3 73 20 172/89 (116) 100 08/01/19 06:13 175/81 08/01/19 04:00 97.7 43 20 162/80 (107) 98 08/01/19 04:00 43 08/01/19 00:01 171/92 08/01/19 00:00 53 08/01/19 00:00 97.2 53 20 155/81 (105) 98 07/31/19 21:00 Venturi Mask 07/31/19 20:07 98 Nasal Cannula 2.0 28 07/31/19 20:00 57 07/31/19 20:00 97.9 57 18 157/86 (109) 96 Intake and Output 07/31/19 08/01/19 19:00 07:00 Intake Total 240 ml 100 ml Output Total 300 ml Balance -60 ml 100 ml Intake Oral 240 ml 100 ml Output Urine Total 300 ml # Voids 2 2 # Bowel Movements 2 Laboratory Tests Test 08/01/19 11:15 White Blood Count 7.3 K/UL (4.8-10.8) Red Blood Count 4.66 M/UL (4.70-6.10) L Hemoglobin 13.8 G/DL (14.2-18.0) L Hematocrit 40.8 % (42.0-52.0) L Mean Corpuscular Volume 88 FL (80-99) Mean Corpuscular Hemoglobin 29.7 PG (27.0-31.0) Mean Corpuscular Hemoglobin Concent 33.9 G/DL (32.0-36.0) Red Cell Distribution Width 12.0 % (11.6-14.8) Platelet Count 234 K/UL (150-450) Mean Platelet Volume 5.3 FL (6.5-10.1) L Neutrophils (%) (Auto) 67.1 % (45.0-75.0) Lymphocytes (%) (Auto) 22.4 % (20.0-45.0) Monocytes (%) (Auto) 8.5 % (1.0-10.0) Eosinophils (%) (Auto) 1.3 % (0.0-3.0) Basophils (%) (Auto) 0.7 % (0.0-2.0) Sodium Level 140 MMOL/L (136-145) Potassium Level 3.6 MMOL/L (3.5-5.1) Chloride Level 108 MMOL/L (98-107) H Carbon Dioxide Level 28 MMOL/L (21-32) Anion Gap 4 mmol/L (5-15) L Blood Urea Nitrogen 9 mg/dL (7-18) Creatinine 1.2 MG/DL (0.55-1.30) Estimat Glomerular Filtration Rate > 60 mL/min (>60) Glucose Level 185 MG/DL (74-106) H Calcium Level 8.5 MG/DL (8.5-10.1) Magnesium Level 1.6 MG/DL (1.8-2.4) L Troponin I 0.070 ng/mL (0.000-0.056) Microbiology Date/Time Source Procedure Growth Status 07/30/19 06:00 Nasal Nares MRSA Culture - Final NO METHICILLIN RESISTANT STAPH AUREUS... Complete Leopoldo Apodaca MD Aug 01, 2019 19:47
--- NOTE | 2019-08-01 20:07 | NUR ---
NURSE NOTES: Received verbal order from Dr. Apodaca for Lipitor 80mg PO at bedtime. Will note and carry out.
[2019-08-01] MEDS: Atorvastatin 80mg tab ORAL SCH (20:45)
[2019-08-01] MEDS ORDERED: Atorvastatin 80mg tab ORAL SCH (21:00)
[2019-08-02] VITALS (8 sets, daily range): BP systolic 143–177; BP diastolic 79–103
--- NOTE | 2019-08-02 02:45 | Consultation ---
DATE OF CONSULTATION: 08/01/2019 CARDIOLOGY CONSULTATION CONSULTING PHYSICIAN: Leopoldo Apodaca M.D. REFERRING PHYSICIAN: Salvador Mansfield M.D. REASON FOR REFERRAL: Abnormal cardiac enzymes. HISTORY OF PRESENT ILLNESS: This is a middle-aged gentleman who is an extremely poor historian. The patient is unable to provide any meaningful history whatsoever. Information was obtained from review of the patient's chart. He was originally admitted to the hospital because of altered mentation. According to group home documents and EMS, the patient was less arousable and less active than his baseline. Based on his report, he was alert and oriented x1. The patient is able to follow some commands, which apparently found to be hypoxic. The patient's oxygen saturation was 86% on room air, improved after nonbreather mask was administered. His blood sugar initially was in the 70s. Glucagon was given without significant improvement. The patient was admitted to the hospital and has been evaluated and seen by multiple consultants. Today, I was notified by Dr. Mansfield to see the patient in consultation. PAST MEDICAL HISTORY: It was able to obtain from [facility], positive for history of cerebrovascular accident in cerebellar artery territory, history of patent foramen ovale, and the patient was not felt to be a candidate for closure, history of lower extremity deep venous thrombosis in common femoral vein and peroneal vein, status post IVC filter in August 2018, history of hypertension, acute kidney disease, metabolic encephalopathy, urinary tract infection, diabetes mellitus, history of seizure disorders, prior history of mechanically assisted ventilation, closed head injury, renal failure, ischemic stroke, history of coronary calcification, cardiomegaly, renal hepatic cysts, IVC filter was recently noted to be still in place, history of abdominal aorta approximately 45 mm, accurate measurements are lacking. SOCIAL HISTORY: Never used tobacco. Alcohol, none. No drug use apparently. PAST SURGICAL HISTORY: Includes appendectomy. REVIEW OF SYSTEMS: Unable to obtain. PHYSICAL EXAMINATION: GENERAL: Shows to be a confused middle-aged gentleman, moving around in bed, awake, is responsive, but really noncommunicative. NECK: Supple. No jugular venous distention. LUNGS: Clear to auscultation and percussion. CARDIAC: S1 is normal. S2 is normal. Regular rate and rhythm. No heaves, thrills, gallops, or rubs are noted. ABDOMEN: Soft, nontender. Positive bowel sounds. EXTREMITIES: There is no edema. He seems to be moving all four extremities. LABORATORY AND DIAGNOSTIC DATA: His last echocardiogram at [facility] was performed 06/27/2019 that showed severely depressed LV systolic function, ejection fraction of 29%, global hypokinesis at that time 4.3 cm, and there was no nuclear medicine cardiology testing performed in this gentleman on prior occasions. During this hospitalization, he had an echocardiogram here today that was interpreted as showing ejection fraction of 60% to 65%, mild aortic regurgitation, trace mitral regurgitation, and PA pressure of 27. He did have a CT scan of his head that showed no acute infarctions, chronic small vessel ischemic changes. Blood tests show a white count of 7.3, hemoglobin 13.8, platelet count of 234. Sodium 140, potassium 3.6, chloride 108, bicarb 28, BUN of 9, creatinine 1.2, and glucose of 185. His magnesium is 1.5 and 1.6 . His troponins have been 0.084, 0.245, 0.138, and 0.070. Chest x-ray performed in the emergency room on 07/29/2019 showed cardiomegaly, no acute processes. Electrocardiogram showed normal sinus rhythm, some biphasic T-waves in the leads V1 and possibly V2, possibly in lead III, but no changes in V2 or changes in aVF. ASSESSMENT AND PLAN: 1. Abnormal cardiac enzymes, likely demand related. 2. History of LV systolic function that appears to have reversed between June 2019 and present one that was performed today. 3. Altered mentation. 4. History of recent cerebrovascular accident. 5. History of patent foramen ovale. 6. Deep venous thrombosis, status post IVC filter placement. 7. Diabetes mellitus. 8. History of substance abuse previously. 9. History of seizure disorder. Dr. Mansfield, this patient was seen in cardiac consultation. The patient is clearly not a candidate for any interventional therapy at this time. He is quite confused, agitated at times, and really noncommunicative. His left ventricular systolic function appears to be normal now. He has never had any testings previously to consider PFO closure back in September 2018 was futile as the patient was unable to consent and not able to obtain any family consents treat the patient conservatively and I think that should be the way that he was treated at this time. I will continue to use of aspirin and statin and if needed beta-blockers. An electrocardiogram also will be repeated for tomorrow morning. I am not sure he will be a candidate for any other type of invasive therapy given his significant comorbidities at the present time. I see that amlodipine that he is getting increase appropriate and further addition of medication may be considered in the future as well. Thank you for allowing me to participate in the care of this patient. Leopoldo Apodaca M.D. DR: Karla JOB#: [id number] CC:
[2019-08-02] MEDS: Piperacillin/Tazobactam 3.375 GM in NS 110 ML IVPB SCH ×2 (06:23→13:43)
[2019-08-02] MEDS: NovoLOG Insulin Flexpen SUBQ SCH ×4 (06:23→21:00)
--- NOTE | 2019-08-02 07:32 | NUR ---
NURSE NOTES: Received report from Rosalia RN. Pt awake and confused and able to follow the simple direction. No c/o pain. no acute distress noted. IV site intact and asymptomatic. Side rails x3 up for safety with padding. Bed in lowest position and locked. Caa light within east reach. Bilateral soft wrist restrain intact and no skin breakdown noted. Will continue to plan of care.
--- NOTE | 2019-08-02 07:32 | NUR ---
HAND-OFF: Report given to ROBIN Rayo. Pt is in stable condition. Plan of care endorsed.
[2019-08-02] MEDS: Aspirin Baby 81mg NG SCH (09:10)
[2019-08-02] MEDS: Docusate 250mg cap ORAL SCH (09:10)
[2019-08-02] MEDS: Lisinopril 20mg tab ORAL SCH (09:10)
[2019-08-02] MEDS: Xarelto 10mg tab ORAL SCH (09:11)
[2019-08-02] MEDS: Valproate Sodium INJ 500 MG in D5W 55 ML IVPB SCH ×2 (09:13→21:12)
--- NOTE | 2019-08-02 10:04 | NUR ---
SWALLOW/SPEECH THERAPY NOTE: SWALLOW STATUS: PATIENT IS ALERT. INTAKE GOALS MET FOR PUREED AND NECTAR THICK LIQUIDS (75 TO 100%) W/O REPORTED OVERT ASPIRATION; HOWEVER, IT TAKES HIM A LONG TIME TO SWALLOW AND GET THROUGH A MEAL. GIVEN TSP NECTAR THICK LIQUID WATER, HIS SWALLOW TRIGGERS AFTER 5 SECONDS AND HE DOES NOT ALLOW ORAL INSPECTION. HE DID NOT SWALLOW AGAIN (TO VERBAL COMMANDS) IN CASE HE HAS OROPHARYNGEAL RESIDUE IN HIS MOUTH OR THROAT. NO OVERT ASPIRATION NOTED. GIVEN SIP OF NECTAR THICK WATER VIA CUP, HE HAS GOOD LIP CLOSURE BUT TENDS TO EITHER NOT MOVE HIS TONGUE AT ALL OR HE CHEWS THE BOLUS UNNECESSARILY FOR AT LEAST 10 SECONDS (EVEN WITH MAX CUES TO "MOVE YOUR TONGUE AND SWALLOW HARD AND SWALLOW AGAIN") THEN SWALLOWS WITH FAIR HYOLARYNGEAL EXCURSION AND NO OVERT ASP (AGAIN HE WILL NOT ALLOW ORAL INSPECTION OF HIS MOUTH). BEST TO COMPLETE ORAL SUCTION (IF HE ALLOWS) PRN OR AFTER MEAL AND KEEP HOB AT LEAST 35 DEGREES TO ALLOW FOR SOME EXTRA SWALLOWS (TO CLEAR OROPHARYNGEAL RESIDUE). TRAINED RN, JUSTINA, IN PALPATING HIS LARYNX AND TIMING THE TRIGGERING OF THE SWALLOW. SHE SAID HE SWALLOWED FASTER WITH MILK. GIVE NECTAR THICK APPLE JUICE, HE TRIGGERED A SWALLOW FASTER, AFTER A FEW SECONDS, W/O OVERT ASPIRATION. PERHAPS HE DISLIKES WATER AND LIKES MILK AND JUICES MORE. SPEECH STATUS: MOSTLY NONVERBAL AND POOR ABILITY TO FOLLOW ONE STAGE COMMANDS EVEN WITH VISUAL CUES (AND HAS POOR EYE CONTACT HE TENDS TO LOOK FORWARD WHEN SPOKEN TO ON HIS RIGHT AND LEFT SIDE). FURTHER INVESTIGATE HIS VISION. PLAN: CONTINUE WITH CURRENT PUREED/NECTAR THICK LIQUIDS INTAKE IS VERY SLOW AND PLAN OF CARE IN THE MOD BARIUM SWALLOW STUDY AND IN THE SPEECH/LANGUAGE/COGNITIVE REPORTS.
--- NOTE | 2019-08-02 11:04 | NUR ---
RD ASSESSMENT & RECOMMENDATIONS SEE CARE ACTIVITY FOR COMPLETE ASSESSMENT DAILY ESTIMATED NEEDS: Needs based on cardiac, DM/ 67.5kg 25-30 kcals/kg 2803-7683 total kcals 1-1.3 g protein/kg 67-87 g total protein 25-30 mL/kg total fluid mLs NUTRITION DIAGNOSIS: *Swallowing difficulty R/T dysphagia, h/o CVA, decreased cognitive fxn as evidenced by LOAN INTERVIEWER recommends pureed moist, NTL. *Altered nutrition related lab values R/T diabetes, HTN as evidenced by A1C of 6.2, elev BGs (185 87), elev BPs (177/98, 160/94), on multiple hypotensive meds. CURRENT DIET:REGULAR, pureed, NTL PO DIET RECOMMENDATIONS: CCHO MED, LOW NA/ texture per LOAN INTERVIEWER ADDITIONAL RECOMMENDATIONS: * Calibrated bedscale wt for accurate CBW * Monitor for continued good PO intake. * Monitor lytes, replete as needed (mag 1.6)
--- NOTE | 2019-08-02 12:58 | Infectious Diseases Prog Note ---
Assessment/Plan Assessment/Plan IMPRESSION: 1. early Pneumonia. 2. Hypoxemic respiratory failure. 3. Altered mental status. 4. Lactic acidosis. 5. Elevated troponin. 6. History of CVA and left-sided weakness. 7. Bradycardia RECOMMENDATION: We will continue with Namitasyjose Subjective ROS Limited/Unobtainable: Yes Neurologic: Reports: confusion, other - on restraint Allergies: Coded Allergies: No Known Allergies (Unverified , 07/29/19) Objective Vital Signs Last 24 Hour Vital Signs Date Time Temp Pulse Resp B/P (MAP) Pulse Ox O2 Delivery O2 Flow Rate FiO2 08/02/19 09:35 97 Nasal Cannula 2.0 28 08/02/19 09:10 67 177/98 08/02/19 09:10 67 177/98 08/02/19 09:10 177/98 08/02/19 09:00 Nasal Cannula 2.0 08/02/19 08:00 98.2 67 20 177/98 (124) 97 08/02/19 08:00 59 08/02/19 04:00 47 08/02/19 04:00 97.8 48 20 143/79 (100) 94 08/02/19 00:00 56 08/02/19 00:00 97.6 66 19 160/94 (116) 98 08/01/19 21:00 Nasal Cannula 2.0 08/01/19 20:00 70 08/01/19 20:00 97.7 69 18 158/95 (116) 99 08/01/19 19:15 99 Nasal Cannula 2.0 28 08/01/19 16:00 56 08/01/19 16:00 98.1 59 20 165/92 (116) 100 Height (Feet): 5 Height (Inches): 8.00 Weight (Pounds): 148 General Appearance: no acute distress HEENT: mucous membranes moist Respiratory/Chest: lungs clear Cardiovascular: normal rate Abdomen: soft, non tender Extremities: no edema Neurologic/Psychiatric: alert, responsive Current Medications Medications (Trade) Dose Ordered Sig/Rhonda Route PRN Reason Start Time Stop Time Status Last Admin Dose Admin Acetaminophen (Tylenol) 650 mg Q4H PRN ORAL Mild Pain/Temp > 100.5 07/29/19 19:45 08/28/19 19:44 Albuterol/ Ipratropium (Albuterol/ Ipratropium) 3 ml Q8H PRN HHN Shortness of Breath 07/29/19 19:45 08/03/19 19:44 Amlodipine Besylate (Norvasc) 5 mg DAILY ORAL 08/01/19 09:00 08/31/19 08:59 08/02/19 09:10 Amlodipine Besylate (Norvasc) 10 mg DAILY ORAL 08/02/19 09:00 09/01/19 08:59 08/02/19 09:10 Aspirin (ASA) 81 mg DAILY NG 07/30/19 09:00 08/29/19 08:59 08/02/19 09:10 Atorvastatin Calcium (Lipitor) 80 mg BEDTIME ORAL 08/01/19 21:00 08/31/19 20:59 08/01/19 20:45 Barium Sulfate (Varibar Honey) 250 ml NOW PRN RAD 07/31/19 09:30 08/03/19 09:29 Barium Sulfate (Varibar [place]) 240 ml NOW PRN RAD 07/31/19 09:30 08/03/19 09:29 Barium Sulfate (Varibar Pud[place]) 230 ml NOW PRN RAD 07/31/19 09:30 08/03/19 09:29 Clonazepam (KlonoPIN) 1 mg Q12H PRN ORAL For Anxiety 07/29/19 19:45 08/05/19 19:44 Dextrose (Dextrose 50%) 25 ml Q30M PRN IV Hypoglycemia 07/29/19 18:45 08/28/19 18:44 07/29/19 22:19 Dextrose (Dextrose 50%) 50 ml Q30M PRN IV Hypoglycemia 07/29/19 18:45 08/28/19 18:44 Docusate Sodium (Colace) 250 mg DAILY ORAL 07/30/19 09:00 08/29/19 08:59 08/02/19 09:10 Famotidine (Pepcid) 20 mg DAILY ORAL 07/30/19 09:00 08/29/19 08:59 08/02/19 09:10 Hydralazine HCl (Apresoline) 25 mg Q6H PRN ORAL For High Blood Pressure 07/29/19 19:45 08/28/19 19:44 08/01/19 06:13 Insulin Aspart (NovoLOG) BEFORE MEALS AND HS SUBQ 07/29/19 21:00 08/28/19 20:59 08/02/19 12:09 Lisinopril (Prinivil) 40 mg DAILY ORAL 07/30/19 09:00 08/29/19 08:59 08/02/19 09:10 Ondansetron HCl (Zofran) 4 mg Q6H PRN IVP Nausea & Vomiting 07/29/19 19:45 08/28/19 19:44 Piperacillin Sod/ Tazobactam Sod 3.375 gm/Sodium Chloride 110 ml @ 27.5 mls/hr Q8HR IVPB 07/29/19 22:00 08/05/19 21:59 08/02/19 06:23 Quetiapine Fumarate (SEROquel) 50 mg DAILYPRN PRN ORAL HALLUCINATIONS 07/29/19 19:45 08/28/19 19:44 Rivaroxaban (Xarelto) 20 mg DAILY ORAL 07/30/19 09:00 08/29/19 08:59 08/02/19 09:11 Tramadol HCl (Ultram) 50 mg Q6H PRN ORAL severe pain 07/29/19 19:45 08/05/19 19:44 Valproate Sodium 500 mg/Dextrose 60 ml @ 60 mls/hr Q12HR IVPB 07/29/19 21:00 08/28/19 20:59 08/02/19 09:13 Hernán Buitrago MD Aug 02, 2019 12:58
--- NOTE | 2019-08-02 16:13 | Pulmonology Progress Note ---
Assessment/Plan Problems: (1) Sepsis (2) Pneumonia (3) Acidosis (4) Altered mental status (5) Elevated troponin Assessment/Plan ASSESSMENT: The patient is a 68-[facility]-old male [facility] resident with prior embolic CVA, PFO on Xarelto, diabetes, hypertension, hyperlipidemia, seizure disorder, presenting with altered mental status secondary to tracheobronchitis, likely encephalopathy as well as elevated cardiac biomarkers likely secondary to demand ischemia. He is fairly stable from a respiratory standpoint. PROBLEM LIST: 1. Healthcare associated tracheobronchitis/early pneumonia. 2. Leukocytosis, likely secondary to above. 3. Altered mental status, likely encephalopathy on top of underlying prior CVA. 4. Diabetes. 5. Hypertension. 6. History of PFO. TREATMENT PLAN: 1. Optimize pulmonary hygiene/mobilize as tolerated. 2. Continue antibiotics per ID. The patient is on Zosyn for (healthcare associated coverage) 3. Titrate down O2 to keep saturations greater than 90%. 4. HHN's 5. Diet per NEUROLOGY PROFESSOR with STRICT aspiration precautions. 6. Continue antiepileptic drugs. 7. PT/OT/NEUROLOGY PROFESSOR 8. Monitor mental status. 9. DVT prophylaxis. Continue with Xarelto. Subjective Allergies: Coded Allergies: No Known Allergies (Unverified , 07/29/19) Subjective AFVSS on 2L still confused but more interactive less cough + SOB no FC Objective Last 24 Hour Vital Signs Date Time Temp Pulse Resp B/P (MAP) Pulse Ox O2 Delivery O2 Flow Rate FiO2 08/02/19 13:10 97.3 88 20 157/93 (114) 98 08/02/19 12:00 98.2 71 20 161/91 (114) 97 08/02/19 12:00 65 08/02/19 09:35 97 Nasal Cannula 2.0 28 08/02/19 09:10 67 177/98 08/02/19 09:10 67 177/98 08/02/19 09:10 177/98 08/02/19 09:00 Nasal Cannula 2.0 08/02/19 08:00 98.2 67 20 177/98 (124) 97 08/02/19 08:00 59 08/02/19 04:00 47 08/02/19 04:00 97.8 48 20 143/79 (100) 94 08/02/19 00:00 56 08/02/19 00:00 97.6 66 19 160/94 (116) 98 08/01/19 21:00 Nasal Cannula 2.0 08/01/19 20:00 70 08/01/19 20:00 97.7 69 18 158/95 (116) 99 08/01/19 19:15 99 Nasal Cannula 2.0 28 Intake and Output 08/01/19 08/02/19 19:00 07:00 Intake Total 1300.0 ml 260 ml Balance 1300.0 ml 260 ml Intake Oral 720 ml 260 ml IV Total 580.0 ml # Voids 4 2 # Bowel Movements 3 General Appearance: no acute distress, cachetic HEENT: normocephalic, atraumatic, anicteric, mucous membranes moist Respiratory/Chest: rhonchi Cardiovascular: normal peripheral pulses, normal rate, regular rhythm Abdomen: normal bowel sounds, soft, non tender, no organomegaly, non distended , no mass Extremities: no cyanosis, no clubbing, no edema Current Medications Medications (Trade) Dose Ordered Sig/Rhonda Route PRN Reason Start Time Stop Time Status Last Admin Dose Admin Acetaminophen (Tylenol) 650 mg Q4H PRN ORAL Mild Pain/Temp > 100.5 07/29/19 19:45 08/28/19 19:44 Albuterol/ Ipratropium (Albuterol/ Ipratropium) 3 ml Q8H PRN HHN Shortness of Breath 07/29/19 19:45 08/03/19 19:44 Amlodipine Besylate (Norvasc) 5 mg DAILY ORAL 08/01/19 09:00 08/31/19 08:59 08/02/19 09:10 Amlodipine Besylate (Norvasc) 10 mg DAILY ORAL 08/02/19 09:00 09/01/19 08:59 08/02/19 09:10 Aspirin (ASA) 81 mg DAILY NG 07/30/19 09:00 08/29/19 08:59 08/02/19 09:10 Atorvastatin Calcium (Lipitor) 80 mg BEDTIME ORAL 08/01/19 21:00 08/31/19 20:59 08/01/19 20:45 Barium Sulfate (Varibar Honey) 250 ml NOW PRN MC RAD 07/31/19 09:30 08/03/19 09:29 Barium Sulfate (Varibar [place]) 240 ml NOW PRN MC RAD 07/31/19 09:30 08/03/19 09:29 Barium Sulfate (Varibar Pudding) 230 ml NOW PRN RAD 07/31/19 09:30 08/03/19 09:29 Clonazepam (KlonoPIN) 1 mg Q12H PRN ORAL For Anxiety 07/29/19 19:45 08/05/19 19:44 Dextrose (Dextrose 50%) 25 ml Q30M PRN IV Hypoglycemia 07/29/19 18:45 08/28/19 18:44 07/29/19 22:19 Dextrose (Dextrose 50%) 50 ml Q30M PRN IV Hypoglycemia 07/29/19 18:45 08/28/19 18:44 Docusate Sodium (Colace) 250 mg DAILY ORAL 07/30/19 09:00 08/29/19 08:59 08/02/19 09:10 Famotidine (Pepcid) 20 mg DAILY ORAL 07/30/19 09:00 08/29/19 08:59 08/02/19 09:10 Hydralazine HCl (Apresoline) 25 mg Q6H PRN ORAL For High Blood Pressure 07/29/19 19:45 08/28/19 19:44 08/01/19 06:13 Insulin Aspart (NovoLOG) BEFORE MEALS AND HS SUBQ 07/29/19 21:00 08/28/19 20:59 08/02/19 12:09 Lisinopril (Prinivil) 40 mg DAILY ORAL 07/30/19 09:00 08/29/19 08:59 08/02/19 09:10 Ondansetron HCl (Zofran) 4 mg Q6H PRN IVP Nausea & Vomiting 07/29/19 19:45 08/28/19 19:44 Piperacillin Sod/ Tazobactam Sod 3.375 gm/Sodium Chloride 110 ml @ 27.5 mls/hr Q8HR IVPB 07/29/19 22:00 08/05/19 21:59 08/02/19 13:43 Quetiapine Fumarate (SEROquel) 50 mg DAILYPRN PRN ORAL HALLUCINATIONS 07/29/19 19:45 08/28/19 19:44 Rivaroxaban (Xarelto) 20 mg DAILY ORAL 07/30/19 09:00 08/29/19 08:59 08/02/19 09:11 Tramadol HCl (Ultram) 50 mg Q6H PRN ORAL severe pain 07/29/19 19:45 08/05/19 19:44 Valproate Sodium 500 mg/Dextrose 60 ml @ 60 mls/hr Q12HR IVPB 07/29/19 21:00 08/28/19 20:59 08/02/19 09:13 Gavin Lopez MD Aug 02, 2019 16:13
--- NOTE | 2019-08-02 16:20 | Diagnostic Imaging Report ---
Indications: Dysphagia Technique: Patient ingested multiple substances under the supervision of speech pathology. Video fluoroscopic recording performed. Total fluoroscopy time 153.8 seconds. Total dose area product [id number] mGycm2 Total number of images-10 Comparison: none Findings: There is penetration of thin liquid barium on the initial swallow. There is early pooling in the vallecula and piriform sinuses. Aspiration was noted when thin liquid barium was used to washout barium pudding. Early pooling is seen with ingestion of other substances. No aspiration or penetration demonstrated. Impression: Positive for aspiration of thin liquid barium Please refer to speech pathology report for more detailed analysis
--- NOTE | 2019-08-02 19:30 | NUR ---
HAND-OFF: Report given to Raphael KELLY. Pt remains stable.
--- NOTE | 2019-08-02 19:37 | Cardiology Report ---
APPROVED REPORT EKG Measurement Heart [id number] [id number] Wandering pacemaker Possible Left atrial enlargement Left anterior fascicular block Left ventricular hypertrophy Cannot rule out Inferior infarct (masked by fascicular block?), age undetermined Anterior infarct, age undetermined Abnormal ECG
--- NOTE | 2019-08-02 19:45 | NUR ---
NURSE NOTES: Pt received from Min, RN alert and oriented x1 to name only, with inappropriate speech. No acute s/s of distress noted upon rounds. On 2L NC, saturating at 96% with no acute resp distress noted. Piano Tuner - SR at 75. soft Bilateral wrist restraints on bilateral upper extremities - skin warm to touch, no s/s of swelling noted, radial pulses equal bilaterally, cap refill less than 3 secs. Seizure precautions implemented - side rails padded, suction at bedside. Bed in lowest position, bed alarm on. Call light and belongings within reach.
--- NOTE | 2019-08-02 21:07 | Cardiology Progress Note ---
Assessment/Plan Assessment/Plan 1. Abnormal cardiac enzymes, likely demand related. 2. History of LV systolic function that appears to have reversed between June 2019 and present one that was performed today. 3. Altered mentation. 4. History of recent cerebrovascular accident. 5. History of patent foramen ovale. 6. Deep venous thrombosis, status post IVC filter placement. 7. Diabetes mellitus. 8. History of substance abuse previously. 9. History of seizure disorder. pt multiple comorbidities would treat conservatively would recommend medical management repeat ekg not done trop lower of note ef has improved between 06/27 at [facility] vs the study performed to day increase statin keep on Ecotrin increase bp meds on xarelto for possible paradoxic embolism Subjective ROS Limited/Unobtainable: Yes Objective Last 24 Hour Vital Signs Date Time Temp Pulse Resp B/P (MAP) Pulse Ox O2 Delivery O2 Flow Rate FiO2 08/02/19 16:00 78 08/02/19 16:00 97.7 72 18 149/89 (109) 99 08/02/19 13:10 97.3 88 20 157/93 (114) 98 08/02/19 12:00 98.2 71 20 161/91 (114) 97 08/02/19 12:00 65 08/02/19 09:35 97 Nasal Cannula 2.0 28 08/02/19 09:10 67 177/98 08/02/19 09:10 67 177/98 08/02/19 09:10 177/98 08/02/19 09:00 Nasal Cannula 2.0 08/02/19 08:00 98.2 67 20 177/98 (124) 97 08/02/19 08:00 59 08/02/19 04:00 47 08/02/19 04:00 97.8 48 20 143/79 (100) 94 08/02/19 00:00 56 08/02/19 00:00 97.6 66 19 160/94 (116) 98 General Appearance: no apparent distress, alert, other - movign all over the bed not communicative appear confused Cardiovascular: normal rate Respiratory/Chest: lungs clear Abdomen: normal bowel sounds, non tender, soft Extremities: no swelling Intake and Output 08/01/19 08/02/19 19:00 07:00 Intake Total 1300.0 ml 260 ml Balance 1300.0 ml 260 ml Intake Oral 720 ml 260 ml IV Total 580.0 ml # Voids 4 2 # Bowel Movements 3 Leopoldo Apodaca MD Aug 02, 2019 21:07
[2019-08-02] MEDS: Atorvastatin 80mg tab ORAL SCH (21:13)
[2019-08-02] MEDS: HydrALAZINE 25mg tab ORAL PRN (21:13)
--- NOTE | 2019-08-02 22:37 | Internal Med Progress Note ---
Subjective Date of Service: Aug 02, 2019 Physician Name Salvador Mansfield Attending Physician Salvador Mansfield MD Current Medications Medications (Trade) Dose Ordered Sig/Rhonda Route PRN Reason Start Time Stop Time Status Last Admin Dose Admin Acetaminophen (Tylenol) 650 mg Q4H PRN ORAL Mild Pain/Temp > 100.5 07/29/19 19:45 08/28/19 19:44 Albuterol/ Ipratropium (Albuterol/ Ipratropium) 3 ml Q8H PRN HHN Shortness of Breath 07/29/19 19:45 08/03/19 19:44 Amlodipine Besylate (Norvasc) 5 mg DAILY ORAL 08/01/19 09:00 08/31/19 08:59 08/02/19 09:10 Amlodipine Besylate (Norvasc) 10 mg DAILY ORAL 08/02/19 09:00 09/01/19 08:59 08/02/19 09:10 Aspirin (ASA) 81 mg DAILY NG 07/30/19 09:00 08/29/19 08:59 08/02/19 09:10 Atorvastatin Calcium (Lipitor) 80 mg BEDTIME ORAL 08/01/19 21:00 08/31/19 20:59 08/02/19 21:13 Barium Sulfate (Varibar Honey) 250 ml NOW PRN RAD 07/31/19 09:30 08/03/19 09:29 Barium Sulfate (Varibar [place]) 240 ml NOW PRN MC RAD 07/31/19 09:30 08/03/19 09:29 Barium Sulfate (Varibar Pudding) 230 ml NOW PRN RAD 07/31/19 09:30 08/03/19 09:29 Clonazepam (KlonoPIN) 1 mg Q12H PRN ORAL For Anxiety 07/29/19 19:45 08/05/19 19:44 Dextrose (Dextrose 50%) 25 ml Q30M PRN IV Hypoglycemia 07/29/19 18:45 08/28/19 18:44 07/29/19 22:19 Dextrose (Dextrose 50%) 50 ml Q30M PRN IV Hypoglycemia 07/29/19 18:45 08/28/19 18:44 Docusate Sodium (Colace) 250 mg DAILY ORAL 07/30/19 09:00 08/29/19 08:59 08/02/19 09:10 Famotidine (Pepcid) 20 mg DAILY ORAL 07/30/19 09:00 08/29/19 08:59 08/02/19 09:10 Hydralazine HCl (Apresoline) 25 mg Q6H PRN ORAL For High Blood Pressure 07/29/19 19:45 08/28/19 19:44 08/02/19 21:13 Insulin Aspart (NovoLOG) BEFORE MEALS AND HS SUBQ 07/29/19 21:00 08/28/19 20:59 08/02/19 18:08 Lisinopril (Prinivil) 40 mg DAILY ORAL 07/30/19 09:00 08/29/19 08:59 08/02/19 09:10 Ondansetron HCl (Zofran) 4 mg Q6H PRN IVP Nausea & Vomiting 07/29/19 19:45 08/28/19 19:44 Piperacillin Sod/ Tazobactam Sod 3.375 gm/Sodium Chloride 110 ml @ 27.5 mls/hr Q8HR IVPB 07/29/19 22:00 08/05/19 21:59 08/02/19 13:43 Quetiapine Fumarate (SEROquel) 50 mg DAILYPRN PRN ORAL HALLUCINATIONS 07/29/19 19:45 08/28/19 19:44 Rivaroxaban (Xarelto) 20 mg DAILY ORAL 07/30/19 09:00 08/29/19 08:59 08/02/19 09:11 Tramadol HCl (Ultram) 50 mg Q6H PRN ORAL severe pain 07/29/19 19:45 08/05/19 19:44 Valproate Sodium 500 mg/Dextrose 60 ml @ 60 mls/hr Q12HR IVPB 07/29/19 21:00 08/28/19 20:59 08/02/19 21:12 Allergies: Coded Allergies: No Known Allergies (Unverified , 07/29/19) ROS Limited/Unobtainable: Yes Constitutional: Reports: no symptoms HEENT: Reports: no symptoms Cardiovascular: Reports: no symptoms Respiratory: Reports: no symptoms Gastrointestinal/Abdominal: Reports: no symptoms Genitourinary: Reports: no symptoms Neurologic/Psychiatric: Reports: pre-existing deficit, weakness All Systems: reviewed and negative except above Objective Last Vital Signs Date Time Temp Pulse Resp B/P (MAP) Pulse Ox O2 Delivery O2 Flow Rate FiO2 08/02/19 21:13 171/103 08/02/19 16:00 78 08/02/19 16:00 97.7 18 99 08/02/19 09:35 Nasal Cannula 2.0 28 General Appearance: alert EENT: PERRL/EOMI Neck: non-tender, supple Cardiovascular: normal rate, regular rhythm, no JVD Respiratory/Chest: lungs clear, no accessory muscle use Abdomen: normal bowel sounds, non tender, soft, no mass Genitourinary/Rectal: normal genital exam Edema: non-pitting Neurologic: alert, disoriented Skin: normal pigmentation, warm/dry Intake and Output 08/01/19 08/02/19 19:00 07:00 Intake Total 1300.0 ml 260 ml Balance 1300.0 ml 260 ml Intake Oral 720 ml 260 ml IV Total 580.0 ml # Voids 4 2 # Bowel Movements 3 Assessment/Plan Status: stable, progressing, tolerating diet Assessment/Plan assessment: acute toxic encephalopathy elevated troponin SIRS leukocytosis health facility pneumomia bradycardia uncontrolled HTN DM seizure disorder hx CVA lactic acidosis hypomagnesemia PLAN : IV abx per ID IV mag sulfate repleted check MG TTE notedd seen by cardio will treat conservatively meds adjsuted inorvasc to 10 mg daily asa xarelto aspiration precaution,m seizure precaution Cardiology eval appreciated tele BP control glycemic control pulm HHN diet per MODELING AGENCY MANAGER wrist soft restraint as needed for safety Dc planning back to SNF 08/03 if ok by cardio and ID Salvador Mansfield MD [phone] Over 35 min spent today Salvador Mansfield MD Aug 02, 2019 22:37
[2019-08-03] VITALS: BP 158/96
[2019-08-03] MEDS: Piperacillin/Tazobactam 3.375 GM in NS 110 ML IVPB SCH ×3 (00:36→14:24)
[2019-08-03 04:00] VITALS: BP 156/89
[2019-08-03] MEDS: NovoLOG Insulin Flexpen SUBQ SCH ×3 (05:58→18:19)
[2019-08-03 07:10] LABS: BASOPHILS % (AUTO) 0.7 % (0.0-2.0); EOSINOPHILS % (AUTO) 1.7 % (0.0-3.0); HEMATOCRIT 44.5 % (42.0-52.0); HEMOGLOBIN 15.3 G/DL (14.2-18.0); LYMPHOCYTES % (AUTO) 32.6 % (20.0-45.0); MEAN CORPUSCULAR VOLUME 86 FL (80-99); MONOCYTES % (AUTO) 8.8 % (1.0-10.0); NEUTROPHILS % (AUTO) 56.2 % (45.0-75.0); PLATELET COUNT 243 K/UL (150-450); RED BLOOD COUNT 5.17 M/UL (4.70-6.10); RED CELL DISTRIBUTION WIDTH 11.1 % (11.6-14.8); WHITE BLOOD COUNT 8.2 K/UL (4.8-10.8)
--- NOTE | 2019-08-03 07:15 | NUR ---
NURSE NOTES: Pt received from ROBIN Lim. Alert and oriented x1 to name only, garbled speech. No acute s/s of distress noted upon rounds. On 2L NC with no acute resp distress noted. Patient is on transmission engineer. Soft Bilateral wrist restraints on bilateral upper extremities. Seizure precautions implemented - side rails padded, suction at bedside. Bed in lowest position, bed alarm on. Call light and belongings within reach.
[2019-08-03 07:25] LABS: ANION GAP 9 mmol/L (5-15); BLOOD UREA NITROGEN 5 mg/dL (7-18); CARBON DIOXIDE 27 MMOL/L (21-32); CHLORIDE 107 MMOL/L (98-107); POTASSIUM 3.7 MMOL/L (3.5-5.1); SODIUM 143 MMOL/L (136-145)
--- NOTE | 2019-08-03 07:38 | NUR ---
HAND-OFF: Report given to ROBIN Espinoza. Plan of care endorsed.
[2019-08-03 08:00] VITALS: BP 161/91
[2019-08-03] MEDS: Aspirin Baby 81mg NG SCH (08:41)
[2019-08-03] MEDS: Xarelto 10mg tab ORAL SCH (08:41)
[2019-08-03] MEDS: Docusate 250mg cap ORAL SCH (08:41)
[2019-08-03] MEDS: Valproate Sodium INJ 500 MG in D5W 55 ML IVPB SCH (08:42)
[2019-08-03] MEDS ORDERED: Lisinopril 20mg tab ORAL SCH ×2 (09:00)
[2019-08-03 12:00] VITALS: BP 135/83
[2019-08-03] MEDS ORDERED: Levofloxacin 500mg tab ORAL SCH (12:00)
--- NOTE | 2019-08-03 12:55 | Infectious Diseases Prog Note ---
Assessment/Plan Assessment/Plan IMPRESSION: 1. early Pneumonia. 2. Hypoxemic respiratory failure. 3. Altered mental status. 4. Lactic acidosis. 5. Elevated troponin. 6. History of CVA and left-sided weakness. 7. Bradycardia RECOMMENDATION: Agree with discharge with PO Levaquin X 3 days Case was D/W PMD Subjective ROS Limited/Unobtainable: Yes Constitutional: Denies: fever Allergies: Coded Allergies: No Known Allergies (Unverified , 07/29/19) Objective Vital Signs Last 24 Hour Vital Signs Date Time Temp Pulse Resp B/P (MAP) Pulse Ox O2 Delivery O2 Flow Rate FiO2 08/03/19 09:17 161/91 08/03/19 09:00 Nasal Cannula 2.0 08/03/19 08:41 50 161/91 08/03/19 08:26 47 08/03/19 08:00 97.9 50 20 161/91 (114) 99 08/03/19 04:00 54 08/03/19 04:00 97.4 58 18 156/89 (111) 97 08/03/19 00:00 97.3 49 19 158/96 (116) 99 08/03/19 00:00 54 08/02/19 22:13 70 159/83 (108) 08/02/19 21:13 171/103 08/02/19 21:00 Nasal Cannula 2.0 08/02/19 20:00 72 08/02/19 20:00 97.9 73 20 171/103 (125) 96 08/02/19 19:57 96 Nasal Cannula 2.0 28 08/02/19 16:00 78 08/02/19 16:00 97.7 72 18 149/89 (109) 99 08/02/19 13:10 97.3 88 20 157/93 (114) 98 Height (Feet): 5 Height (Inches): 8.00 Weight (Pounds): 148 General Appearance: no acute distress HEENT: mucous membranes moist Respiratory/Chest: lungs clear Cardiovascular: bradycardia Abdomen: soft, non tender Extremities: no edema Neurologic/Psychiatric: alert, responsive Laboratory Tests Test 08/02/19 23:20 08/03/19 06:00 Magnesium Level 1.9 MG/DL (1.8-2.4) White Blood Count 8.2 K/UL (4.8-10.8) Red Blood Count 5.17 M/UL (4.70-6.10) Hemoglobin 15.3 G/DL (14.2-18.0) Hematocrit 44.5 % (42.0-52.0) Mean Corpuscular Volume 86 FL (80-99) Mean Corpuscular Hemoglobin 29.6 PG (27.0-31.0) Mean Corpuscular Hemoglobin Concent 34.4 G/DL (32.0-36.0) Red Cell Distribution Width 11.1 % (11.6-14.8) L Platelet Count 243 K/UL (150-450) Mean Platelet Volume 5.2 FL (6.5-10.1) L Neutrophils (%) (Auto) 56.2 % (45.0-75.0) Lymphocytes (%) (Auto) 32.6 % (20.0-45.0) Monocytes (%) (Auto) 8.8 % (1.0-10.0) Eosinophils (%) (Auto) 1.7 % (0.0-3.0) Basophils (%) (Auto) 0.7 % (0.0-2.0) Sodium Level 143 MMOL/L (136-145) Potassium Level 3.7 MMOL/L (3.5-5.1) Chloride Level 107 MMOL/L (98-107) Carbon Dioxide Level 27 MMOL/L (21-32) Anion Gap 9 mmol/L (5-15) Blood Urea Nitrogen 5 mg/dL (7-18) L Creatinine 1.0 MG/DL (0.55-1.30) Estimat Glomerular Filtration Rate > 60 mL/min (>60) Glucose Level 103 MG/DL (74-106) Calcium Level 9.0 MG/DL (8.5-10.1) Current Medications Medications (Trade) Dose Ordered Sig/Rhonda Route PRN Reason Start Time Stop Time Status Last Admin Dose Admin Acetaminophen (Tylenol) 650 mg Q4H PRN ORAL Mild Pain/Temp > 100.5 07/29/19 19:45 08/28/19 19:44 Albuterol/ Ipratropium (Albuterol/ Ipratropium) 3 ml Q8H PRN HHN Shortness of Breath 07/29/19 19:45 08/03/19 19:44 Amlodipine Besylate (Norvasc) 10 mg DAILY ORAL 10/17/19 09:00 09/01/19 08:59 08/03/19 08:41 Aspirin (ASA) 81 mg DAILY NG 07/30/19 09:00 08/29/19 08:59 08/03/19 08:41 Atorvastatin Calcium (Lipitor) 80 mg BEDTIME ORAL 08/01/19 21:00 08/31/19 20:59 08/02/19 21:13 Clonazepam (KlonoPIN) 1 mg Q12H PRN ORAL For Anxiety 07/29/19 19:45 08/05/19 19:44 Dextrose (Dextrose 50%) 25 ml Q30M PRN IV Hypoglycemia 07/29/19 18:45 08/28/19 18:44 07/29/19 22:19 Dextrose (Dextrose 50%) 50 ml Q30M PRN IV Hypoglycemia 07/29/19 18:45 08/28/19 18:44 Docusate Sodium (Colace) 250 mg DAILY ORAL 07/30/19 09:00 08/29/19 08:59 08/03/19 08:41 Famotidine (Pepcid) 20 mg DAILY ORAL 07/30/19 09:00 08/29/19 08:59 08/03/19 08:41 Hydralazine HCl (Apresoline) 25 mg Q6H PRN ORAL For High Blood Pressure 07/29/19 19:45 08/28/19 19:44 08/02/19 21:13 Insulin Aspart (NovoLOG) BEFORE MEALS AND HS SUBQ 07/29/19 21:00 08/28/19 20:59 08/03/19 12:13 Levofloxacin (Levaquin) 500 mg DAILY ORAL 08/03/19 12:00 08/05/19 11:59 08/03/19 12:16 Lisinopril (Prinivil) 40 mg BID ORAL 08/03/19 09:00 09/02/19 08:59 UNV Ondansetron HCl (Zofran) 4 mg Q6H PRN IVP Nausea & Vomiting 07/29/19 19:45 08/28/19 19:44 Piperacillin Sod/ Tazobactam Sod 3.375 gm/Sodium Chloride 110 ml @ 27.5 mls/hr Q8HR IVPB 07/29/19 22:00 08/05/19 21:59 08/03/19 06:21 Quetiapine Fumarate (SEROquel) 50 mg DAILYPRN PRN ORAL HALLUCINATIONS 07/29/19 19:45 08/28/19 19:44 Rivaroxaban (Xarelto) 20 mg DAILY ORAL 07/30/19 09:00 08/29/19 08:59 08/03/19 08:41 Tramadol HCl (Ultram) 50 mg Q6H PRN ORAL severe pain 07/29/19 19:45 08/05/19 19:44 Valproate Sodium 500 mg/Dextrose 60 ml @ 60 mls/hr Q12HR IVPB 07/29/19 21:00 08/28/19 20:59 08/03/19 08:42 Hernán Buitrago MD Aug 03, 2019 12:55
--- NOTE | 2019-08-03 13:30 | NUR ---
*-* DISCHARGE PLANNING *-* PATIENT HAS BEEN REFERRED BACK TO: [facility] P: [phone] F: [phone]
--- NOTE | 2019-08-03 14:39 | Pulmonology Progress Note ---
Assessment/Plan Problems: (1) Sepsis (2) Pneumonia (3) Acidosis (4) Altered mental status (5) Elevated troponin Assessment/Plan ASSESSMENT: The patient is a 68-year-old male [facility] resident with prior embolic CVA, PFO on Xarelto, diabetes, hypertension, hyperlipidemia, seizure disorder, presenting with altered mental status secondary to tracheobronchitis, likely encephalopathy as well as elevated cardiac biomarkers likely secondary to demand ischemia. He is fairly stable from a respiratory standpoint. PROBLEM LIST: 1. Healthcare associated tracheobronchitis/early pneumonia. 2. Leukocytosis, likely secondary to above. 3. Altered mental status, likely encephalopathy on top of underlying prior CVA. 4. Diabetes. 5. Hypertension. 6. History of PFO. TREATMENT PLAN: 1. Optimize pulmonary hygiene/mobilize as tolerated. 2. Continue antibiotics per ID --> to complete 3 additional days of OP Levaquin 3. Titrate down O2 to keep saturations greater than 90%. 4. HHN's 5. Diet per MANAGER STRATEGIC ALLIANCES with STRICT aspiration precautions. 6. Monitor mental status. 7. Diet per MANAGER STRATEGIC ALLIANCES with STRICT aspiration precautions 8. DVT prophylaxis. Continue with Xarelto. Subjective Allergies: Coded Allergies: No Known Allergies (Unverified , 07/29/19) Subjective AFVSS on 2L still confused but more interactive less cough + SOB no FC VSS noted, dispo planning Objective Last 24 Hour Vital Signs Date Time Temp Pulse Resp B/P (MAP) Pulse Ox O2 Delivery O2 Flow Rate FiO2 08/03/19 09:17 161/91 08/03/19 09:00 Nasal Cannula 2.0 08/03/19 08:41 50 161/91 08/03/19 08:26 47 08/03/19 08:00 97.9 50 20 161/91 (114) 99 08/03/19 04:00 54 08/03/19 04:00 97.4 58 18 156/89 (111) 97 08/03/19 00:00 97.3 49 19 158/96 (116) 99 08/03/19 00:00 54 08/02/19 22:13 70 159/83 (108) 08/02/19 21:13 171/103 08/02/19 21:00 Nasal Cannula 2.0 08/02/19 20:00 72 08/02/19 20:00 97.9 73 20 171/103 (125) 96 08/02/19 19:57 96 Nasal Cannula 2.0 28 08/02/19 16:00 78 08/02/19 16:00 97.7 72 18 149/89 (109) 99 Intake and Output 08/02/19 08/03/19 18:59 06:59 Intake Total 292.5 ml Balance 292.5 ml Intake Oral 150 ml IV Total 142.5 ml # Voids 3 3 # Bowel Movements 2 3 General Appearance: no acute distress, cachetic HEENT: normocephalic, atraumatic, anicteric, mucous membranes moist Respiratory/Chest: chest wall non-tender, lungs clear, normal breath sounds, no respiratory distress, no accessory muscle use Cardiovascular: normal peripheral pulses, normal rate, regular rhythm Abdomen: normal bowel sounds, soft, non tender, no organomegaly, non distended , no mass Extremities: no cyanosis, no clubbing, no edema Laboratory Tests 08/02/19 23:20: Magnesium Level 1.9 08/03/19 06:00: White Blood Count 8.2, Red Blood Count 5.17, Hemoglobin 15.3, Hematocrit 44.5, Mean Corpuscular Volume 86, Mean Corpuscular Hemoglobin 29.6, Mean Corpuscular Hemoglobin Concent 34.4, Red Cell Distribution Width 11.1L, Platelet Count 243, Mean Platelet Volume 5.2L, Neutrophils (%) (Auto) 56.2, Lymphocytes (%) (Auto) 32.6, Monocytes (%) (Auto) 8.8, Eosinophils (%) (Auto) 1.7, Basophils (%) (Auto ) 0.7, Sodium Level 143, Potassium Level 3.7, Chloride Level 107, Carbon Dioxide Level 27, Anion Gap 9, Blood Urea Nitrogen 5L, Creatinine 1.0, Estimat Glomerular Filtration Rate > 60, Glucose Level 103, Calcium Level 9.0 Current Medications Medications (Trade) Dose Ordered Sig/Rhonda Route PRN Reason Start Time Stop Time Status Last Admin Dose Admin Acetaminophen (Tylenol) 650 mg Q4H PRN ORAL Mild Pain/Temp > 100.5 07/29/19 19:45 08/28/19 19:44 Albuterol/ Ipratropium (Albuterol/ Ipratropium) 3 ml Q8H PRN HHN Shortness of Breath 07/29/19 19:45 08/03/19 19:44 Amlodipine Besylate (Norvasc) 10 mg DAILY ORAL 08/02/19 09:00 09/01/19 08:59 08/03/19 08:41 Aspirin (ASA) 81 mg DAILY NG 07/30/19 09:00 08/29/19 08:59 08/03/19 08:41 Atorvastatin Calcium (Lipitor) 80 mg BEDTIME ORAL 08/01/19 21:00 08/31/19 20:59 08/02/19 21:13 Clonazepam (KlonoPIN) 1 mg Q12H PRN ORAL For Anxiety 07/29/19 19:45 08/05/19 19:44 Dextrose (Dextrose 50%) 25 ml Q30M PRN IV Hypoglycemia 07/29/19 18:45 08/28/19 18:44 07/29/19 22:19 Dextrose (Dextrose 50%) 50 ml Q30M PRN IV Hypoglycemia 07/29/19 18:45 08/28/19 18:44 Docusate Sodium (Colace) 250 mg DAILY ORAL 07/30/19 09:00 08/29/19 08:59 08/03/19 08:41 Famotidine (Pepcid) 20 mg DAILY ORAL 07/30/19 09:00 08/29/19 08:59 08/03/19 08:41 Hydralazine HCl (Apresoline) 25 mg Q6H PRN ORAL For High Blood Pressure 07/29/19 19:45 08/28/19 19:44 08/02/19 21:13 Insulin Aspart (NovoLOG) BEFORE MEALS AND HS SUBQ 07/29/19 21:00 08/28/19 20:59 08/03/19 12:13 Levofloxacin (Levaquin) 500 mg DAILY ORAL 08/03/19 12:00 08/05/19 11:59 08/03/19 12:16 Lisinopril (Prinivil) 40 mg BID ORAL 08/03/19 09:00 09/02/19 08:59 UNV Ondansetron HCl (Zofran) 4 mg Q6H PRN IVP Nausea & Vomiting 07/29/19 19:45 08/28/19 19:44 Piperacillin Sod/ Tazobactam Sod 3.375 gm/Sodium Chloride 110 ml @ 27.5 mls/hr Q8HR IVPB 07/29/19 22:00 08/05/19 21:59 08/03/19 14:24 Quetiapine Fumarate (SEROquel) 50 mg DAILYPRN PRN ORAL HALLUCINATIONS 07/29/19 19:45 08/28/19 19:44 Rivaroxaban (Xarelto) 20 mg DAILY ORAL 07/30/19 09:00 08/29/19 08:59 08/03/19 08:41 Tramadol HCl (Ultram) 50 mg Q6H PRN ORAL severe pain 07/29/19 19:45 08/05/19 19:44 Valproate Sodium 500 mg/Dextrose 60 ml @ 60 mls/hr Q12HR IVPB 07/29/19 21:00 08/28/19 20:59 08/03/19 08:42 Gavin Lopez MD Aug 03, 2019 14:39
--- NOTE | 2019-08-03 15:35 | NUR ---
NURSE NOTES: Spoke to ROBIN Winn. Patient ETA is 16:00. Patient will be going to [facility] via [facility] ambulance.
[2019-08-03 16:00] VITALS: BP 132/80
[2019-08-03] MEDS ORDERED: LEVAQUIN500 MG ORAL (16:32)
[2019-08-03] MEDS ORDERED: NS 275ml ONE (18:29)
[2019-08-03] MEDS ORDERED: Tubing IV Secondary IV ONE (18:29)
--- NOTE | 2019-08-03 18:30 | NUR ---
SNF Discharge: [facility] Patient is alert and O x1 to person. Patient is nonverbal. Patient is on room air breathing even and unlabored. Patient is unable to sign belonging checklist and discharge papers. Family was made attempt called and left voicemail. All medical devices such as IV, heart monitor, and ID band were removed. Patient left on gurney, patient had no belonging, to [facility] ambulance to [facility].
--- NOTE | 2019-08-05 09:17 | Discharge Summary ---
Discharge Summary Discharge Summary _ DATE OF ADMISSION: 07/29/2019 DATE OF DISCHARGE: 08/03/2019 DISCHARGED BY: Dr. [facility] CONSULTANTS: Dr. Gavin Apodaca BRIEF HOSPITAL COURSE: Patient is a 68-year-old male from [facility], with history of hypertension, diabetes, seizure disorder, who was noted by staff to have altered mental status. Patient was arousable and will go back to sleep. Patient was hypoglycemic, glucagon was given by paramedics. He was also noted to be hypoxic at 86% room air which improved after starting a nonrebreather mask. The patient had a previous admission back in June 2019 at [facility] for possible overdose with benzodiazepines and opioid, unintentional. Upon evaluation at the ED, blood pressure was 144/97, pulse rate 84, 90% oxygen saturation on 6 L nasal cannula. Blood work showed WBC of 14. Hemoglobin 17, hematocrit 50. Electrolytes were normal. Troponin elevated to 0.084. proBNP 971. ABG showed seven-point 4/38/72/23/94. Chest x-ray showed possible pneumonia and effusion of the left lower lobe. EKG showed sinus rhythm, left axis deviation, normal cardiac intervals, no ST segment changes. Head CT did not show any acute findings. Sepsis work-up was initiated. Lactic acid was elevated to 3. Cultures were sent. He was then admitted for evaluation of altered mental status, pneumonia, acidosis, sepsis and elevated troponin. He was admitted to monitored floor. He was given nebulizer treatment. He was initially started with Zosyn and IV vancomycin. ID specialist was consulted. Vancomycin was discontinued. Wire Drawing Setter was consulted. There was initial concern for infiltrative process on chest x-ray, final read did not see any infiltrates. Patient with possible healthcare associated tracheobronchitis/ early pneumonia. He was given Xarelto for DVT prophylaxis. He was continued on antiepileptic drugs. Speech evaluation recommended pured, nectar thick liquid. He was placed on strict aspiration precaution. Packing Machine Operator was consulted. Patient has history of patent foramen ovale. Was not felt to be a candidate for closure. Last echocardiogram done at [facility] performed on 06/27/2019 showed severely depressed LV systolic function, ejection fraction of 29, global hypokinesis. Echocardiogram done at [facility] showed EF of 60 to 65%, mild aortic regurgitation, trace mitral regurgitation, PA pressure of 27. The patient is not a candidate for any interventional therapy at this time. He has significant comorbidities. He was recommended to continue use of aspirin and statin. He was given Norvasc 10 mg for blood pressure control. He was given magnesium supplements. Blood culture did not isolate any growth. Leukocytosis resolved. Patient was more interactive with less cough. He was eventually discharged back to intermediate. To continue p.o. Levaquin x3 more days. 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
== END 2019-08-03 18:30 | DRG 871 ==
LOC: EDBD 11:25 → EMR 12:56 → 2E 14:30 → EDBEDREQ 15:42
DX: A41.9 Sepsis, unspecified organism (principal); J18.9 Pneumonia, unspecified organism; J96.91 Respiratory failure, unspecified with hypoxia; G92 Toxic encephalopathy; E87.2 Acidosis; I69.354 Hemiplegia and hemiparesis following cerebral infarction affecting left non-dominant side; Q21.1 Atrial septal defect; I24.8 Other forms of acute ischemic heart disease; J40 Bronchitis, not specified as acute or chronic; G40.909 Epilepsy, unspecified, not intractable, without status epilepticus; I10 Essential (primary) hypertension; R00.1 Bradycardia, unspecified; E83.42 Hypomagnesemia; I35.1 Nonrheumatic aortic (valve) insufficiency; E11.22 Type 2 diabetes mellitus with diabetic chronic kidney disease; N18.9 Chronic kidney disease, unspecified; E78.5 Hyperlipidemia, unspecified; R13.10 Dysphagia, unspecified; Z79.01 Long term (current) use of anticoagulants; Z79.82 Long term (current) use of aspirin; Z79.4 Long term (current) use of insulin; F19.11 Other psychoactive substance abuse, in remission
CPT/HCPCS: 36415; 36600; 70450; 71045; 74230; 80048; 80053; 80061; 81003; 82140; 82550; 82553; 82803; 82962; 83036; 83605; 83735; 83880; 84100; 84443; 84484; 85025; 85610; 85730; 87040; 87081; 93005; 93306; 96361; 96365; 96366; 96367; 96375; 99291; J1815; J7030